=== PATIENT | male | born 1945 | race Caucasian/White ===

== ENCOUNTER 2017-05-19 13:52 | Day surgery (SDC) | payer MEDICARE, SELFPAY ==
[2017-05-19] VITALS (11 sets, daily range): BP systolic 132–163; BP diastolic 72–87; PULSE 48–68; RESP 17–22; TEMP 36.6; O2SAT 96–99; BMI 28.0
--- NOTE | 2017-05-19 13:59 | IR_ITS ---
CARDIAC CATHETERIZATION DATE OF CATHETERIZATION:05/19/2017 3:25 PM PROCEDURES: 1. Left heart catheterization 2. Left ventriculogram 3. Selective coronary angiogram 4. Drug-eluting stent deployment to the proximal and mid LAD 5. Drug-eluting stent deployment to the proximal and mid circumflex artery 6. Drug-eluting stent deployment to the dominant right coronary arteries posterior descending artery INDICATION FOR TEST: 1. Unstable angina/class IV angina 2. Abnormal EKG 3. Recent anterior myocardial infarction 4. Coronary artery disease Informed consent was obtained prior to the procedure. COMPLICATIONS: None ESTIMATED BLOOD LOSS: Less than 10 ml. TECHNIQUE: One percent lidocaine used to anesthetize the right anterior aspect of the wrist. The right radial artery was accessed via the Seldinger technique. A 6 Kiswahili sheath was placed in the right radial artery. 2.5 mg of verapamil, 800 mcg of nitroglycerin and 5000 U Heparin were given through the arterial sheath. The trap catheter was also used to perform left heart catheterization left ventriculogram and selective coronary angiogram. At the end of the diagnostic angiogram and additional 4000 units of heparin was administered intravenously. An Ikari left guide catheter was used intubate the left main artery and a choice PT extra-support wire was placed in the distal LAD. A 3 mm x 38 mm resolute Soy stent was deployed at 20 pattie reducing the critical subtotal occlusion to 0%. The wire was pulled back and placed into the obtuse marginal artery a guideline her was required and a 2.5 x 27 mm balloon was deployed at 20 pattie to predilate the stenosis. Following this a 3 mm x 34 mm resolute Agency stent was deployed at 18 pattie reducing the severe and critical stenosis to 0%. The apparatus was removed and an Ikari right guide catheter was used intubate the right coronary artery. The choice PT wire was placed distally and a 2 mm x 8 mm balloon was used to predilate the stenosis. Following this a 2.5 x 12 mm resolute Agency stent was deployed at 18 pattie reducing the critical stenosis to 0%. NICOLASA-3 flow was present down the circumflex artery and right coronary artery before and after the procedure the ACT was out of range. NICOLASA II flow was present down the LAD at the beginning of the procedure with NICOLASA-3 flow at the end of the procedure Patient received Brilinta 180 mg while on the table. At the end of the procedure the sheath was removed good hemostasis was achieved using TR banding patient was transferred to the postop holding area in stable condition ANGIOGRAPHIC RESULTS: 1. The left main artery normal 2. The left anterior descending artery proximally has 40% stenoses with mid vessel 40 and a focal 99% stenosis with subtotal occlusion and NICOLASA II flow down the LAD. 3. The circumflex artery is nondominant yet still a large vessel supplying a large obtuse marginal artery. Proximally the vessel has 50% stenoses with a focal 90% stenosis of the proximal portion of the large bifurcating obtuse marginal artery 4. The right coronary artery is a large dominant vessel and has proximal 30% stenoses mid vessel 40-50% stenoses with a long 30 and 40% stenoses through the distal portion of the right coronary artery. The posterior descending artery is a large branch and has a mid vessel 99% stenosis. The posterior lateral ventricular branch is also a large multi branching vessel 5. The MORELAND ventriculogram reveals normal 60% 6. The left ventricular end-diastolic pressure 10 mmHg IMPRESSION: 1. Critical coronary artery disease as described above 2. Successful stenting of the proximal to mid LAD critical disease reduced to 0% with 1 drug-eluting stent 3. Successful stenting of the proximal to mid circumflex artery critical
[2017-05-19 15:27] LABS: Basophils # 0.1 K/mm3 (0-0.2); Basophils % 1.1 % (0.1-2.0); Eosinophils # 0.2 K/mm3 (0.0-0.4); Hematocrit 42.2 % (42.0-52.0); Hemoglobin 14.5 g/dL (14.1-18.0); Lymphocytes % 46.5 K/mm3 (10-50); Mean Corpuscular HGB Conc 34.4 g/dL (31.8-35.4); Mean Corpuscular Hemoglobin 31.6 pg (27.0-31.2); Mean Corpuscular Volume 91.7 fl (80-94); Mean Platelet Volume 11.2 fl (7.4-10.4); Monocytes # 0.7 K/mm3 (0.1-1.0); Neutrophils # 3.6 K/mm3 (1.8-7.8); Neutrophils % 42.4 % (37.0-80.0); Platelet Count 260 K/mm3 (142-424); Red Cell Distribution Width 12.3 % (11.5-17.5); White Blood Count 8.5 K/mm3 (4.8-10.8)
[2017-05-19 16:00] LABS: Anion Gap 11.2 mEq/L (5-15); Blood Urea Nitrogen 25 mg/dL (7-18); Carbon Dioxide 27 mmol/L (21.0-32.0); Chloride 103 mmol/L (98-107); Creatinine Clearance Estimated 57 mL/min (0-300); Estimated Glomerular Filt Rate 50 ml/min (>60); GFR (African American) 60 ML/MIN (>60); Glucose 100 mg/dL (74-106); Sodium 137 mmol/L (136-145)
[2017-05-19 16:02] LABS: Potassium 4.2 mmoL/L (3.5-5.1)
--- NOTE | 2017-05-19 18:36 | PC.NURSE ---
When removing second set of 2mls of air from traclet his site began to bleed. Pressure was applied above the site and air was put back into the traclet. Will continue to monitor.
--- NOTE | 2017-05-19 19:17 | PC.NURSE ---
Report given to Leida Cruz Rn.
--- NOTE | 2017-05-19 20:46 | PC.NURSE ---
Obtained pt from Lana Persaud. Report given when tracelet was taken down the first two, pt bled some so put more air in. I have taken air out 2 at a time since receiving pt and no bleeding noted. Removed pt's IV and tracelet, dressed appropriately. Pt up and dressed, sling obtained and placed on pt. Much instruction given on bleeding precautions and limited use of arm. Pt voiced agreement with both. Pt left with steady gait and famiy at his side. They were escorted to front of building by SAMANTA Person.
--- NOTE | 2017-05-19 21:07 | PC.NURSE ---
Also advised pt to call Dr Walton Monday morning. Pt agreed, he would call and he has Dr. Walton's number.
[2017-05-22 08:21] LABS: CATHL Activated Clotting Time > 400 SEC (74-125)
[2017-05-22 08:25] LABS: CATHL Activated Clotting Time > 400 SEC (74-125)
--- NOTE | 2017-05-25 10:40 | PC.NURSE ---
post procedure call made, pt states he is doing well, had f/u appt with md, denies any questions/concerns at this time
== END 2017-05-19 18:00 | disposition home or self-care (01) ==
PROVIDERS: PCP Family Medicine; Visit Provider Internal Medicine
DX: I25.110 Atherosclerotic heart disease of native coronary artery with unstable angina pectoris (principal); R94.31 Abnormal electrocardiogram [ECG] [EKG]; I25.2 Old myocardial infarction; Z87.891 Personal history of nicotine dependence
CPT/HCPCS: 80048; 85025; 85347; 92928; 93458; 99152; 99153; C1725; C1769; C1876; C9600; J1644; Q9967

== ENCOUNTER 2017-06-01 09:30 | Outpatient (RCR) | payer MEDICARE, SELFPAY | END 2017-06-01 09:31 | disposition home or self-care (01) | LOC: PT 09:30 | PROVIDERS: PCP Family Medicine; Visit Provider Internal Medicine | DX: Z95.5 Presence of coronary angioplasty implant and graft (principal) | CPT/HCPCS: 93798 ==

== ENCOUNTER → 2019-01-16 09:04 | Outpatient (CLI) | payer MEDICARE, SELFPAY ==
--- NOTE | 2019-01-16 09:07 | CA_ITS ---
APPROVED REPORT Agricultural Education Instructor: HILARIO Laterality: Bilateral Study Quality: Good Indications: dizziness Risk Factors Hypertension: Hyperlipidemia Doppler Spectral Velocity Analysis ECA (R) 123.00/13.40 cm/s ECA (L) 86.70/7.93 cm/s dICA (R) 82.20/24.10 cm/s dICA (L) 87.20/27.00 cm/s Yris (R) 71.50/17.30 cm/s Yris (L) 83.00/23.80 cm/s pICA (R) 80.40/19.60 cm/s pICA (L) 79.10/28.10 cm/s dCCA (R) 104.00/23.40 cm/s dCCA (L) 101.00/22.00 cm/s pCCA (R) 114.00/20.40 cm/s pCCA (L) 108.00/22.80 cm/s Vert (R) 41.50/11.50 cm/s Vert (L) 40.80/12.80 cm/s ICA/CCA 0.79 ICA/CCA 0.86 Findings Duplex evaluation demonstrates stenosis of the right proximal internal carotid artery <20% with PSV <140 cm/sec, EDV <100 cm/sec, and IC/CC Ratio <4.0. Duplex evaluation demonstrates stenosis of the left proximal internal carotid artery <20% with PSV <140 cm/sec, EDV <100 cm/sec, and IC/CC Ratio <4.0. Antegrade flow seen bilateral vertebral arteries. Conclusion Duplex evaluation demonstrates stenosis of the right proximal internal carotid artery <20% with PSV <140 cm/sec, EDV <100 cm/sec, and IC/CC Ratio <4.0. Duplex evaluation demonstrates stenosis of the left proximal internal carotid artery <20% with PSV <140 cm/sec, EDV <100 cm/sec, and IC/CC Ratio <4.0. Antegrade flow seen bilateral vertebral arteries. Electronically signed by : Rashid Garrido MD 01/16/2019 20:05:56
== END ==
PROVIDERS: PCP Family Medicine; Visit Provider Internal Medicine Cardiovascular Disease
DX: R42 Dizziness and giddiness (principal)
CPT/HCPCS: 93880

== ENCOUNTER → 2019-01-25 07:42 | Outpatient (CLI) | payer MEDICARE, SELFPAY | PROVIDERS: PCP Family Medicine; Visit Provider Internal Medicine | DX: R42 Dizziness and giddiness (principal); I25.10 Atherosclerotic heart disease of native coronary artery without angina pectoris; E78.5 Hyperlipidemia, unspecified; I11.9 Hypertensive heart disease without heart failure | CPT/HCPCS: 93225 ==

== ENCOUNTER → 2019-02-01 08:28 | Outpatient (CLI) | payer MEDICARE, SELFPAY ==
[2019-02-01 10:29] LABS: Alanine Aminotransferase 14 U/L (12-78); Albumin Level 3.8 gm/dL (3.4-5.0); Alkaline Phosphatase 69 U/L (46-116); Anion Gap 10.6 mEq/L (5-15); Aspartate Amino Transferase 11 U/L (15-37); Bilirubin,Direct 0.1 mg/dL (0.0-0.2); Bilirubin,Indirect 0.3 mg/dL (0.0-0.9); Bilirubin,Total 0.4 mg/dL (0.2-1.0); Blood Urea Nitrogen 14 mg/dL (7-18); Calcium 9.1 mg/dL (8.5-10.1); Carbon Dioxide 30 mmol/L (21.0-32.0); Chloride 104 mmol/L (98-107); Chol/HDL Ratio 3.4 (1-3.5); Cholesterol 182 mg/dL (140-200); Creatinine,Serum 1.61 mg/dL (0.70-1.30); Estimated Glomerular Filt Rate 42 ml/min (>60); GFR (African American) 51 ML/MIN (>60); Glucose 107 mg/dL (74-106); HDL Cholesterol 53 mg/dL (27-67); LDL Cholesterol 94 mg/dL (0-130); Potassium 4.6 mmoL/L (3.5-5.1); Sodium 140 mmol/L (136-145); Total Protein,Serum 7.3 gm/dL (6.4-8.2); Triglycerides 175 mg/dL (30-200); VLDL Cholesterol 35 mg/dL (0-40)
== END ==
PROVIDERS: Visit Provider Internal Medicine Cardiovascular Disease
DX: E78.5 Hyperlipidemia, unspecified (principal); R42 Dizziness and giddiness
CPT/HCPCS: 36415; 80048; 80061; 80076

== ENCOUNTER → 2019-10-09 09:04 | Outpatient (CLI) | payer MEDICARE, SELFPAY ==
[2019-10-09 10:26] LABS: Alanine Aminotransferase 16 U/L (12-78); Albumin Level 4.8 g/dl (3.5-5.0); Alkaline Phosphatase 82 U/L (38-126); Anion Gap 10.5 mEq/L (5-15); Aspartate Amino Transferase 25 U/L (17-59); Bilirubin,Direct 0.1 mg/dl (0.0-0.4); Bilirubin,Indirect 0.6 mg/dL (0.0-0.9); Bilirubin,Total 0.7 mg/dl (0.2-1.3); Bilirubin,Unconjugated 0.6 mg/dL (0.0-1.1); Blood Urea Nitrogen 27 mg/dl (9-20); Calcium 9.8 mg/dl (8.4-10.2); Carbon Dioxide 28 mmol/L (22.0-30.0); Chloride 104 mmol/L (98-107); Chol/HDL Ratio 5.8 (1-3.5); Cholesterol 307 mg/dl (140-200); Estimated Glomerular Filt Rate 39 ml/min (>60); GFR (African American) 48 ML/MIN (>60); Glucose 97 mg/dl (74-100); HDL Cholesterol 53 mg/dl (40-60); Potassium 4.5 mmoL/L (3.5-5.1); Sodium 138 mmol/L (136-145); Triglycerides 282 mg/dl (30-150); VLDL Cholesterol 56 mg/dL (0-40)
[2019-10-09 10:37] LABS: Direct LDL Cholesterol 215.18 mg/dL (100-129)
== END ==
PROVIDERS: Visit Provider Internal Medicine Cardiovascular Disease
DX: E78.5 Hyperlipidemia, unspecified (principal); I11.9 Hypertensive heart disease without heart failure; I25.10 Atherosclerotic heart disease of native coronary artery without angina pectoris; I65.23 Occlusion and stenosis of bilateral carotid arteries
CPT/HCPCS: 36415; 80048; 80061; 80076

== ENCOUNTER → 2019-12-11 08:50 | Outpatient (CLI) | payer MEDICARE, SELFPAY ==
--- NOTE | 2019-12-11 | CT_ITS ---
PROCEDURE: CT HEAD/BRAIN WO CON CLINICAL INDICATION: TIA, prior stroke, left-sided facial numbness and drawing of the right hand COMPARISON: No exams were available for comparison TECHNIQUE: Axial images obtained. All CT scans at the facility use one or more dose reduction, viz: automated exposure control, ma/kV adjustment per patient size (including targeted exams where dose is matched to indication, i.e. head), or iterative reconstruction technique. FINDINGS: No midline shift, mass effect, intracranial hemorrhage, hydrocephalus, or extra-axial fluid collection is evident. There is generalized atrophy with hypoattenuation of the periventricular white matter consistent with microangiopathic changes. There is asymmetry in the occipital horns of the lateral ventricles with the left side being more prominent than the right. This is of questionable clinical significance the calvarium has an unremarkable appearance. No mastoid effusion. Bony hypertrophic changes present along the right aspect of the atlantoaxial joint posterior to the dens IMPRESSION: No acute intracranial finding Dictated b Rashid Garrido MD 12/11/2019 15:38 Rashid Garrido MD in [facility] 12/11/2019 15:38
--- NOTE | 2019-12-11 | CT_ITS ---
Procedure: CT ANGIO HEAD CLINICAL HISTORY: Left-sided facial numbness, right hand weakness COMPARISON: CT CT HEAD/BRAIN WO CON from 12/11/2019 TECHNIQUE: IV Contrast: 100ml Optiray 350 Axial images obtained with sagittal and coronal reformats. All CT scans at the facility use one or more dose reduction, viz: automated exposure control, ma/kV adjustment per patient size (including targeted exams where dose is matched to indication, i.e. head), or iterative reconstruction technique. FINDINGS: There are mild atheromatous changes with calcific plaque involving the cavernous portion of the internal carotid arteries. There is approximately 50 percent stenosis involving the supraclinoid portion of the right ICA from the calcific plaque. No aneurysm or arteriovenous malformations are apparent. The vertebral basilar system has an unremarkable appearance. No evidence of 6 sinus thrombosis. No enhancing lesions apparent. Incidental note is made mild ethmoid sinus opacification IMPRESSION: 1. Mild atheromatous changes of the cavernous portion of the ICAs with approximately 50 percent stenosis of the supraclinoid portion of the right ICA. 2. No aneurysm, AVM, or major intracranial occlusive changes. Dictated b Rashid Garrido MD 12/12/2019 09:46 Rashid Garrido MD in [facility] 12/12/2019 09:46
[2019-12-11 09:39] LABS: Blood Urea Nitrogen 27 mg/dl (9-20); Estimated Glomerular Filt Rate 37 ml/min (>60); GFR (African American) 45 ML/MIN (>60)
--- NOTE | 2019-12-11 10:40 | CT_ITS ---
Procedure: CT ANGIO NECK CLINICAL HISTORY: LATE EFFECTS OF CEREBROVASCULAR DISEASE Prior stroke, left-sided facial numbness a drawing of the right hand, COMPARISON: No exams were available for comparison TECHNIQUE: IV Contrast: 100ml Optiray 350 Axial images obtained with sagittal and coronal reformats. All CT scans at the facility use one or more dose reduction, viz: automated exposure control, ma/kV adjustment per patient size (including targeted exams where dose is matched to indication, i.e. head), or iterative reconstruction technique. FINDINGS: There are mild atheromatous changes of the aorta and great vessels with no significant stenosis the proximal aspect of the great vessels. The proximal aspect of the left vertebral is kinked with a area of stenosis of approximately 75 percent. Right carotid: There is only a small amount of calcific plaque in the common carotid. The internal carotid on the right has an unremarkable appearance with no significant stenotic lesions. Left carotid: No significant stenosis of the common or internal carotid on the left. No dissection or ulcerations apparent. The there are few scattered small nodes in the neck. The there is mild mucosal thickening of the left maxillary sinus and there are mild degenerative changes in the cervical spine. IMPRESSION: No carotid stenosis There is tortuosity with kinking of the proximal aspect of the left vertebral artery with approximately 75 percent stenosis the the Dictated b Rashid Garrido MD 12/12/2019 09:26 Rashid Garrido MD in [facility] 12/12/2019 09:26
== END ==
PROVIDERS: PCP Family Medicine; Visit Provider Family Medicine
DX: I69.90 Unspecified sequelae of unspecified cerebrovascular disease (principal); R42 Dizziness and giddiness
CPT/HCPCS: 36415; 70450; 70496; 70498; 82565; 84520; Q9967

== ENCOUNTER → 2020-03-20 10:01 | Outpatient (CLI) | payer MEDICARE, SELFPAY ==
[2020-03-20 10:49] LABS: Alanine Aminotransferase 15 U/L (12-78); Albumin Level 4.3 g/dl (3.5-5.0); Alkaline Phosphatase 69 U/L (38-126); Aspartate Amino Transferase 25 U/L (17-59); Bilirubin,Direct 0.1 mg/dl (0.0-0.4); Bilirubin,Indirect 0.5 mg/dL (0.0-0.9); Bilirubin,Total 0.6 mg/dl (0.2-1.3); Bilirubin,Unconjugated 0.5 mg/dL (0.0-1.1); Chol/HDL Ratio 3.3 (1-3.5); Cholesterol 189 mg/dl (140-200); HDL Cholesterol 57 mg/dl (40-60); Total Protein,Serum 7.3 g/dl (6.3-8.2); Triglycerides 183 mg/dl (30-150); VLDL Cholesterol 37 mg/dL (0-40)
[2020-03-20 11:00] LABS: Direct LDL Cholesterol 101.02 mg/dL (100-129)
== END ==
PROVIDERS: Visit Provider Internal Medicine Cardiovascular Disease
DX: I10 Essential (primary) hypertension; I25.10 Atherosclerotic heart disease of native coronary artery without angina pectoris; R06.02 Shortness of breath; Z95.5 Presence of coronary angioplasty implant and graft; E78.49 Other hyperlipidemia
CPT/HCPCS: 36415; 80061; 80076

== ENCOUNTER 2020-07-22 16:07 | Observation (INO) | payer MEDICARE, SELFPAY ==
[2020-07-22] VITALS (27 sets, daily range): BP systolic 119–183; BP diastolic 77–91; PULSE 66–115; RESP 16–18; TEMP 36.7–37; O2SAT 91–98; BMI 26.6; BMI 25.5
--- NOTE | 2020-07-22 16:43 | HMH.EDGENADL ---
ED Disposition Clinical Impression: SBO (small bowel obstruction) Disposition: Admitted As Inpatient Condition on Discharge: Good Referrals: Cruzito Preciado [Primary Care Provider] - Time of Disposition: 18:04 - Critical Care Critical Care Time: No Attestation: On 07/22/20, the high probability of a clinically significant, sudden or life threatening deterioration of the following system(s) required my full and direct attention, intervention and personal management. The time I documented below is in addition to time spent performing reported procedures but includes the following listed in this critical care notation. Medical Decision Making - Medical Records Medical records reviewed: Yes: I reviewed the patient's medical records. - Reynaldo Inquiry Pt receiving controlled substance: No Vital Signs: 07/22/20 16:09 07/22/20 16:45 07/22/20 17:00 Temperature 98.6 F Temperature Source Oral Pulse Rate 77 78 Pulse Rate [Right Radial] 70 Respiratory Rate 18 Blood Pressure 149/79 H Blood Pressure [Right Arm] 159/82 H Blood Pressure Mean 100 Blood Pressure Mean [Right Arm] 107 Blood Pressure Source [Right Arm] Automatic Cuff Blood Pressure Position [Right Arm] Sitting 02 Sat by Pulse Oximetry 97 94 L 94 L Oxygen Delivery Method Room Air 07/22/20 17:20 07/22/20 17:30 Temperature Temperature Source Pulse Rate 82 66 Pulse Rate [Right Radial] Respiratory Rate Blood Pressure 147/79 H Blood Pressure [Right Arm] Blood Pressure Mean 96 Blood Pressure Mean [Right Arm] Blood Pressure Source [Right Arm] Blood Pressure Position [Right Arm] 02 Sat by Pulse Oximetry 91 L 94 L Oxygen Delivery Method - Lab Data Lab results reviewed: Yes: I reviewed the patient's lab results. Lab Results 07/22/20 16:35: WBC 12.9 H, RBC 4.52 L, Hgb 13.9 L, Hct 41.9 L, MCV 92.7, MCH 30.8, MCHC 33.2, RDW 12.3, Plt Count 309, MPV 10.3, Neut % (Auto) 79.1, Lymph % (Auto) 13.5, [place] % (Auto) 6.7, Eos % (Auto) 0.2, Baso % (Auto) 0.4, Neut # (Auto) 10.2 H, Lymph # (Auto) 1.7, [place] # (Auto) 0.9, Eos # (Auto) 0.0, Baso # (Auto) 0.1 07/22/20 16:35: Sodium 137, Potassium 4.0, Chloride 100, Carbon Dioxide 24, Anion Gap 17.0 H, BUN 34 H, Creatinine 1.90 H, Estimated Creat Clear 38, Estimated GFR 35 L, Est GFR ( Amer) 42 L, Glucose 160 H, Calcium 10.2, Total Bilirubin 0.9, AST 33, ALT 21, Alkaline Phosphatase 80, Total Protein 8.9 H, Albumin 5.0, Globulin 3.9 H, Albumin/Globulin Ratio 1.3 Result diagrams: 07/22/20 16:35 07/22/20 16:35 Orders (Tests/Meds): ORDERS Category Date Time Status CT abdomen pelvis wo con Stat Cat Scan 07/22/20 16:44 Taken - CT Data CT Scan: Abdomen, Pelvis Time Received: 17:[address] Reviewed: Yes: I discussed the CT results w/the radiologist Preliminary Findings: Abnormal Findings Narrative: Small bowel obstruction, moderate. Located in the jejunum. Left lower quadrant transition point. - ECG Data Tracing #1 Sinus rhythm with first-degree AV block, left bundle branch block, 73 bpm, no ST elevation or depression. ECG initial impression date: 07/22/20 ECG initial impression time: 17:33 Medical Decision Narrative: 74yo M presents to the emergency department with abdominal pain, nausea and vomiting. Patient has a history of small bowel obstruction suspect the same today. Patient is in no acute distress on initial evaluation. Patient's laboratory studies were unremarkable. CT of the abdomen and pelvis reveals moderate small bowel obstruction of the jejunum with transition point in the left lower quadrant. Case discussed with Dr. Kowalski who agrees to accept the patient. Request NG tube be placed and case discussed with general surgery. General Adult HPI - General Chief complaint: Abdominal Pain Stated complaint: Possible Bowel Blockage Time Seen by Provider: 07/22/20 16:44 Mode of Arrival: Ambulatory Limitations: No Limitations Description of Symp
--- NOTE | 2020-07-22 16:44 | CT_ITS ---
PROCEDURE: CT ABDOMEN PELVIS WO CON CLINICAL INDICATION: abd pain, vomitting COMPARISON: No exams were available for comparison TECHNIQUE: Axial images obtained with sagittal and coronal reformats. All CT scans at the facility use one or more dose reduction, viz: automated exposure control, ma/kV adjustment per patient size (including targeted exams where dose is matched to indication, i.e. head), or iterative reconstruction technique. FINDINGS: LOWER THORAX: No acute finding ABDOMEN & PELVIS: The liver has an unremarkable appearance. Gallstones are present. 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 The adrenal glands are unremarkable. There is mild pancreatic atrophy. No pancreatic mass. Small bilateral renal cysts are present. There is a 3 mm stone in the midportion region of the left kidney. No ureteral calculi. No hydronephrosis. No evidence of appendicitis. There is mild distention of the stomach. Small bowel is distended proximally. Transition point is felt to be in the left lower quadrant area in the region of the distal jejunum/proximal ileum. The mid distal ileum are decompressed. Air-fluid levels are present in the small bowel. Small bowel feces sign noted in the left lower quadrant. Small bowel measures up to 4 cm in diameter. No abscess or free air apparent. Grade 1 spondylitic spondylolisthesis is present at L5-S1.. IMPRESSION: 1. Moderate grade small bowel obstruction with transition point in the left lower quadrant. No free air apparent. The mid and distal small bowel are decompressed. 2. Cholelithiasis. 3. Left nephrolithiasis Dictated by: Rashid Garrido MD 07/23/2020 06:30 Rashid Garrido MD in [facility] 07/23/2020 06:30
[2020-07-22 16:53] LABS: Basophils # 0.1 K/mm3 (0-0.2); Basophils % 0.4 % (0.1-2.0); Eosinophils % 0.2 % (0.1-12.0); Hematocrit 41.9 % (42.0-52.0); Hemoglobin 13.9 g/dL (14.1-18.0); Lymphocytes # 1.7 K/mm3 (0.7-4.5); Lymphocytes % 13.5 % (10-50); Mean Corpuscular HGB Conc 33.2 g/dL (31.8-35.4); Mean Corpuscular Hemoglobin 30.8 pg (27.0-31.2); Mean Corpuscular Volume 92.7 fl (80-94); Mean Platelet Volume 10.3 fl (7.4-10.4); Monocytes # 0.9 K/mm3 (0.1-1.0); Monocytes % 6.7 % (1.7-9.3); Neutrophils # 10.2 K/mm3 (1.8-7.8); Neutrophils % 79.1 % (37.0-80.0); Platelet Count 309 K/mm3 (142-424); Red Blood Count 4.52 M/mm3 (4.60-6.20); Red Cell Distribution Width 12.3 % (11.5-17.5); White Blood Count 12.9 K/mm3 (4.8-10.8)
[2020-07-22 16:59] LABS: Alanine Aminotransferase 21 U/L (12-78); Albumin/Globulin Ratio 1.3 (1.1-1.8); Alkaline Phosphatase 80 U/L (38-126); Aspartate Amino Transferase 33 U/L (17-59); Bilirubin,Total 0.9 mg/dl (0.2-1.3); Blood Urea Nitrogen 34 mg/dl (9-20); Calcium 10.2 mg/dl (8.4-10.2); Carbon Dioxide 24 mmol/L (22.0-30.0); Chloride 100 mmol/L (98-107); Creatinine Clearance Estimated 38 mL/min (50-200); Estimated Glomerular Filt Rate 35 ml/min (>60); GFR (African American) 42 ML/MIN (>60); Globulin 3.9 g/dL (1.3-3.2); Glucose 160 mg/dl (74-100); Sodium 137 mmol/L (136-145); Total Protein,Serum 8.9 g/dl (6.3-8.2)
--- NOTE | 2020-07-22 17:29 | ECG_ITS ---
APPROVED REPORT Exam: Resting ECG HR:73 bpm ECG Measurements Heart Rate 73 AXES MI 246 P 20 QRSd 150 QRS -38 QT 426 T 101 QTc 469 Conclusion Sinus rhythm with 1st degree AV block Left axis deviation Left bundle branch block Abnormal ECG Electronically signed by : Dequan Kowalski, 07/24/2020 11:43:13
--- NOTE | 2020-07-22 17:56 | PC.NURSE ---
Paged Dr Kowalski for admission
--- NOTE | 2020-07-22 17:59 | PC.NURSE ---
RADHA VANCE speaking with Dr. Kowalski
--- NOTE | 2020-07-22 18:01 | PC.NURSE ---
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
--- NOTE | 2020-07-22 18:02 | PC.NURSE ---
notified general warehouse worker of admission
--- NOTE | 2020-07-22 18:34 | PC.NURSE ---
ER MD notified of multiple attempts of attempting to place NG without success r/t pt is vomiting NG tube back up. ER MD gave verbal order for GI cocktail to try and numb pt to help attempt to place NG tube.
--- NOTE | 2020-07-22 18:43 | XR_ITS ---
PROCEDURE: XR CHEST PORTABLE CLINICAL HISTORY: ng tube placement COMPARISON: No exams were available for comparison FINDINGS: The cardiomediastinal silhouette and pulmonary vascularity are within normal limits. The lungs are clear without infiltrates, suspicious nodules, or pleural effusions. There is a nasogastric tube present. The tip is not visible but is below the GE junction. IMPRESSION: NG tube tip below the GE junction. Otherwise negative. Dictated by: Rashid Garrido MD 07/22/2020 19:27 Rashid Garrido MD in [facility] 07/22/2020 19:27
--- NOTE | 2020-07-22 18:47 | PC.NURSE ---
NG tube placed to L nare at this time, waiting on chest xray to confirm placement. NG is at 55 cm, pt was measured to be 60 cm but was unable to put tube at that depth r/t pt gagging. ER is aware. will continue to monitor and await xray results.
--- NOTE | 2020-07-22 18:51 | PC.NURSE ---
rad at BS
--- NOTE | 2020-07-22 19:19 | XR_ITS ---
PROCEDURE: XR CHEST PORTABLE CLINICAL HISTORY: NG TUBE RE POSITIONED. COMPARISON: CR XR CHEST PORTABLE from 07/22/2020 FINDINGS: The nasogastric tube has been repositioned. The tip is in the region the body of the stomach. Surgical clips are present in the left upper quadrant. The lung hughes are over penetrated as the exam is performed for NG tube position. No obvious lobar consolidation or collapse. No acute bony abnormalities. IMPRESSION: NG tube tip in the region of the body of the stomach. Dictated by: Rashid Garrido MD 07/23/2020 06:22 Rashid Garrido MD in [facility] 07/23/2020 06:22
--- NOTE | 2020-07-22 20:06 | PC.NURSE ---
Ng advanced to 65cm in left nare after MD reviewed Xray. Positive auscultation with 30cc of air. Pt placed on intermittent low wall suction. Brown fluid emptying into suction container. Pt tolerating well.
--- NOTE | 2020-07-22 21:34 | PC.NURSE ---
800ml of brown fluid in suction container at this time.
--- NOTE | 2020-07-22 22:05 | PC.NURSE ---
PT ARRIVED TO FLOOR VIA STRETCHER FROM ED AT 2200
[2020-07-23 04:00] VITALS: BP 133/65; PULSE 82; RESP 16; TEMP 36.9; O2SAT 94
[2020-07-23 05:15] VITALS: BMI 25.4
[2020-07-23 06:47] LABS: Basophils % 0.1 % (0.1-2.0); Eosinophils % 0.1 % (0.1-12.0); Hemoglobin 13.4 g/dL (14.1-18.0); Lymphocytes % 9.8 % (10-50); Mean Corpuscular HGB Conc 33.4 g/dL (31.8-35.4); Mean Corpuscular Hemoglobin 31.2 pg (27.0-31.2); Mean Corpuscular Volume 93.5 fl (80-94); Mean Platelet Volume 10.2 fl (7.4-10.4); Monocytes # 0.9 K/mm3 (0.1-1.0); Monocytes % 4.5 % (1.7-9.3); Neutrophils # 17.2 K/mm3 (1.8-7.8); Neutrophils % 85.5 % (37.0-80.0); Platelet Count 278 K/mm3 (142-424); Red Blood Count 4.28 M/mm3 (4.60-6.20); Red Cell Distribution Width 12.6 % (11.5-17.5); White Blood Count 20.1 K/mm3 (4.8-10.8)
--- NOTE | 2020-07-23 06:53 | PC.NURSE ---
Pt is A&Ox4 and has not c/o pain this shift. NG set to intermittent LWS and has put out 1,450ml of output. NG 65cm at the nare. Pt has denied any n/v/d. Pt has also not voided this shift. Bowel sounds hypoactive. Pt states he does not feel the urge, bladder not distended or painful to palpation. Lungs CTA, on room air. Call light within reach.
[2020-07-23 06:55] LABS: Anion Gap 11.8 mEq/L (5-15); Blood Urea Nitrogen 38 mg/dl (9-20); Calcium 9.6 mg/dl (8.4-10.2); Carbon Dioxide 34 mmol/L (22.0-30.0); Chloride 95 mmol/L (98-107); Creatinine Clearance Estimated 38 mL/min (50-200); Estimated Glomerular Filt Rate 37 ml/min (>60); GFR (African American) 45 ML/MIN (>60); Glucose 133 mg/dl (74-100); Potassium 3.8 mmoL/L (3.5-5.1); Sodium 137 mmol/L (136-145)
[2020-07-23 07:05] LABS: MANUAL DIFFERENTIAL MANUAL DIFFERENTIAL (MANUAL DIFF)
--- NOTE | 2020-07-23 07:20 | HMH.GSCON ---
*Admission Date: 07/22/20 *Reason for consult:: SBO *History of present illness: This is a 74-year-old gentleman seen in consultation from the service of Dr. Kowalski for evaluation regarding small bowel obstruction. He presented to the emergency department yesterday evening with increasing abdominal discomfort/distention. Evaluation included a CT scan that showed changes consistent with possible developing small bowel obstruction. Please see HPI from admission H&P forwarded below. Forwarded from admission H&P: 74-year-old white male with history of recurrent bowel obstructions-he relates this to an injury in the in which he was pushing down a tree and the tree came back and hit me in the belly. He reports that since that time he has had bowel obstructions every 10 years and that he comes to the emergency department and gets admitted with an NG tube and then he is fine. He thinks that he is precipitated this particular bowel obstruction by eating lots of beans and the husks of the beans hung up on something in there. He reports that since admission last night he feels much better and that it actually had some flatulence. He denies melena, hematochezia or coffee-ground emesis. Review of Systems - Constitutional Denies chills - Eyes Denies change in vision - ENT Denies pain with swallowing - *Cardiovascular Denies chest pain - *Respiratory Denies cough - *Gastrointestinal Reports abdominal pain, Reports nausea - *Genitourinary Denies difficulty urinating - *Musculoskeletal Denies abnormal walking - Integumentary/Breasts Denies new lesions - *Neurologic Denies confusion - Psychiatric Denies anxiety - Endocrine Denies cold intolerance - Hematologic/Lymphatic Denies easy bleeding - Allergic/Immunologic Denies wheezing [facility] History Medical History: Reports:: Aneurysm, Cardiomyopathy, Carotid Stenosis, Coronary Artery Disease, Hyperlipidemia, Hypertension Denies:: Cancer, Diabetes Mellitus Type 1, Diabetes Mellitus Type 2, MRSA *Have you ever received a pneumonia vaccine?: No *Have you received a flu vaccine this season?: Yes Other Surgeries: Yes: Cardiac Catheterization ([facility] 3 stents ), Other (bowel surgery) Amputation: No Fractures: No - *Social History Smoking Status: Former smoker Tobacco Type: cigarettes Alcohol Intake: never Alcohol Intake Frequency:: other Substance Use Type: denies use *Occupational Status:: retired Household Members: spouse *Travel in the last 8 weeks: None Family Hx:: Diabetes Meds Home Medications Medication Instructions Recorded Confirmed Type Aspirin [Low Dose Aspirin EC] 81 mg PO DAILY 05/19/17 07/23/20 History Clopidogrel Bisulfate [Plavix] 75 mg PO DAILY 07/22/20 07/22/20 History Evolocumab [Repatha SureClick] 140 mg SQ .EVERY 2 WEEKS 07/22/20 07/23/20 History Losartan Potassium [Cozaar 100mg 100 mg PO DAILY 07/22/20 07/22/20 History Tablets] Allergies Allergy/AdvReac Type Severity Reaction Status Date / Time clarithromycin [From Biaxin] Allergy Severe Hives Verified 07/22/20 22:37 atorvastatin AdvReac Intermediate myalgia Verified 07/22/20 22:37 rosuvastatin [From Crestor] AdvReac Intermediate myalgias Verified 07/22/20 22:37 Exam Vital signs and Labs for Last 24 Hours: Temp Pulse Resp BP Pulse Ox 98.5 F 82 16 133/65 94 L 07/23/20 04:00 07/23/20 04:00 07/23/20 04:00 07/23/20 04:00 07/23/20 04:00 Laboratory Results - last 24 hr 07/22/20 16:35: WBC 12.9 H, RBC 4.52 L, Hgb 13.9 L, Hct 41.9 L, MCV 92.7, MCH 30.8, MCHC 33.2, RDW 12.3, Plt Count 309, MPV 10.3, Neut % (Auto) 79.1, Lymph % (Auto) 13.5, [place] % (Auto) 6.7, Eos % (Auto) 0.2, Baso % (Auto) 0.4, Neut # (Auto) 10.2 H, Lymph # (Auto) 1.7, [place] # (Auto) 0.9, Eos # (Auto) 0.0, Baso # (Auto) 0.1 07/22/20 16:35: Sodium 137, Potassium 4.0, Chloride 100, Carbon Dioxide 24, Anion Gap 17.0 H, BUN 34 H, Creatinine 1.90 H, Estimated Creat Clear 38, Estimat
[2020-07-23 07:25] VITALS: BP 141/74; PULSE 78; RESP 18; TEMP 36.9; O2SAT 98
--- NOTE | 2020-07-23 07:26 | P.CONPHA_ITS ---
[facility] Pharmacy VTE Monitoring - Patient Demographics Admission date: 07/22/20 Report Date: 07/23/20 Time: 07:27 Allergies/Adverse Reactions: Patient Allergies clarithromycin [From Biaxin] Allergy (Severe, Verified 07/22/20 22:37) Hives atorvastatin Adverse Reaction (Intermediate, Verified 07/22/20 22:37) myalgia rosuvastatin [From Crestor] Adverse Reaction (Intermediate, Verified 07/22/20 22:37) myalgias Height: 1.75 m Weight: 77.791 kg Patient Problems: Current Active Problems SBO (small bowel obstruction) (Acute) - VTE Risk Labs: VTE Related Lab Results Hgb 13.4 g/dL (14.1-18.0) L 07/23/20 06:24 Hct 40.0 % (42.0-52.0) L 07/23/20 06:24 Plt Count 278 K/mm3 (142-424) 07/23/20 06:24 BUN 38 mg/dl (9-20) H 07/23/20 06:24 Creatinine 1.80 mg/dl (0.66-1.25) H 07/23/20 06:24 Estimated Creat Clear 38 mL/min (50-200) 07/23/20 06:24 Was VTE Risk Assessment Performed: Yes VTE Score: 5 VTE Risk Level: Low Risk Clinical Trial Participant: No - Prophylaxis VTE Prophylaxis Ordered?: Yes Types of VTE Prophylaxis: IPCS Knee High, Pharmacological Pharmacologic Type: Enoxaparin
--- NOTE | 2020-07-23 07:29 | HMH.PHAINT ---
verified home medication list with list from outpatient pharmacy
--- NOTE | 2020-07-23 07:34 | FL_ITS ---
PROCEDURE: FL SMALL BOWEL FOLLOW THROUGH CLINICAL INDICATION: sbo Small-bowel obstruction COMPARISON: No exams were available for comparison FINDINGS: Fluoroscopy time: 3 minutes and 29 seconds A mixture of barium and Gastrografin was given through the patient's NG tube. There is mild dilatation the duodenum and jejunum. The small bowel folds however were not effaced. Fluoroscopic evaluation was performed in a definite transition point could not be identified despite multiple positioning and compression. There was no significant peristalsis of the small bowel at this region. The delayed image obtained at approximately 4 hours showed only slight progression of the column of contrast. Findings may be due to a focal ileus. There was full some flocculation of contrast in the jejunum due to the slow. The patient experience nausea and vomiting for much of the exam. Serial KUBs will be obtained to follow the progress of the column of barium. IMPRESSION: Persistent dilatation of the proximal small bowel as described above without significant peristalsis or focal transition point. Cannot exclude the possibility of small-bowel obstruction however, focal ileus is also considered. Serial KUBs to be obtained for further evaluation. Please correlate with clinical findings. Dictated by: Rashid Garrido MD 07/23/2020 16:53 Rashid Garrido MD in [place] 07/23/2020 16:53
[2020-07-23 08:00] VITALS: O2SAT 98
[2020-07-23 08:31] LABS: Eosinophils % 2 % (0-3); Lymphocytes % 10 % (10-50); Monocytes % 5 % (2-9); Neutrophils % 83 % (42-76); Total Cells Counted 100
[2020-07-23 08:32] LABS: Platelet Estimate Normal; RBC Morphology Normal
--- NOTE | 2020-07-23 08:37 | HMH.HP ---
*Admission Date: 07/22/20 *Chief complaint: My bowels are blocked up. *History of present illness: 74-year-old white male with history of recurrent bowel obstructions-he relates this to an injury in the in which he was pushing down a tree and the tree came back and hit me in the belly. He reports that since that time he has had bowel obstructions every 10 years and that he comes to the emergency department and gets admitted with an NG tube and then he is fine. He thinks that he is precipitated this particular bowel obstruction by eating lots of beans and the husks of the beans hung up on something in there. He reports that since admission last night he feels much better and that it actually had some flatulence. He denies melena, hematochezia or coffee-ground emesis. [facility] History I have reviewed the patient's past medical history: Yes Medical History: Reports:: Aneurysm, Cardiomyopathy, Carotid Stenosis, Coronary Artery Disease, Hyperlipidemia, Hypertension Denies:: Cancer, Diabetes Mellitus Type 1, Diabetes Mellitus Type 2, MRSA *Have you ever received a pneumonia vaccine?: No *Have you received a flu vaccine this season?: Yes Other Surgeries: Yes: Cardiac Catheterization ([facility] 3 stents ), Other (bowel surgery) Amputation: No Fractures: No - *Social History Smoking Status: Former smoker Tobacco Type: cigarettes Alcohol Intake: never Alcohol Intake Frequency:: other Substance Use Type: denies use *Occupational Status:: retired Household Members: spouse *Travel in the last 8 weeks: None Family Hx:: Diabetes Review of Systems - Review of Systems Review of systems:: pertinent systems reviewed and negative unless documented below Meds Home Medications Medication Instructions Recorded Confirmed Type Aspirin [Low Dose Aspirin EC] 81 mg PO DAILY 05/19/17 07/23/20 History Clopidogrel Bisulfate [Plavix] 75 mg PO DAILY 07/22/20 07/22/20 History Evolocumab [Repatha SureClick] 140 mg SQ .EVERY 2 WEEKS 07/22/20 07/23/20 History Losartan Potassium [Cozaar 100mg 100 mg PO DAILY 07/22/20 07/22/20 History Tablets] Allergies Allergy/AdvReac Type Severity Reaction Status Date / Time clarithromycin [From Biaxin] Allergy Severe Hives Verified 07/22/20 22:37 atorvastatin AdvReac Intermediate myalgia Verified 07/22/20 22:37 rosuvastatin [From Crestor] AdvReac Intermediate myalgias Verified 07/22/20 22:37 Exam Vital signs and Labs for Last 24 Hours: Temp Pulse Resp BP Pulse Ox 98.4 F 78 18 141/74 H 98 07/23/20 07:25 07/23/20 07:25 07/23/20 07:25 07/23/20 07:25 07/23/20 07:25 Laboratory Results - last 24 hr 07/22/20 16:35: WBC 12.9 H, RBC 4.52 L, Hgb 13.9 L, Hct 41.9 L, MCV 92.7, MCH 30.8, MCHC 33.2, RDW 12.3, Plt Count 309, MPV 10.3, Neut % (Auto) 79.1, Lymph % (Auto) 13.5, [place] % (Auto) 6.7, Eos % (Auto) 0.2, Baso % (Auto) 0.4, Neut # (Auto) 10.2 H, Lymph # (Auto) 1.7, [place] # (Auto) 0.9, Eos # (Auto) 0.0, Baso # (Auto) 0.1 07/22/20 16:35: Sodium 137, Potassium 4.0, Chloride 100, Carbon Dioxide 24, Anion Gap 17.0 H, BUN 34 H, Creatinine 1.90 H, Estimated Creat Clear 38, Estimated GFR 35 L, Est GFR ( Amer) 42 L, Glucose 160 H, Calcium 10.2, Total Bilirubin 0.9, AST 33, ALT 21, Alkaline Phosphatase 80, Total Protein 8.9 H, Albumin 5.0, Globulin 3.9 H, Albumin/Globulin Ratio 1.3 07/23/20 06:24: WBC 20.1 H* D, RBC 4.28 L, Hgb 13.4 L, Hct 40.0 L, MCV 93.5, MCH 31.2, MCHC 33.4, RDW 12.6, Plt Count 278, MPV 10.2, Neut % (Auto) 85.5 H, Lymph % (Auto) 9.8 L, [place] % (Auto) 4.5, Eos % (Auto) 0.1, Baso % (Auto) 0.1, Neut # (Auto) 17.2 H, Lymph # (Auto) 2.0, [place] # (Auto) 0.9, Eos # (Auto) 0.0, Baso # (Auto) 0.0, Total Counted 100, Neutrophils % (Manual) 83 H, Lymphocytes % (Manual) 10, Monocytes % (Manual) 5, Eosinophils % (Manual) 2, Platelet Estimate Normal, RBC Morphology Normal 07/23/20 06:24: Sodium 137, Potassium 3.8, Chloride 95 L, Carbon Dioxide 34 H D, Anion Gap 11.8, BUN 38 H, Creatinine 1.80 H, Bekah
[2020-07-23 16:00] VITALS: BP 128/66; PULSE 80; RESP 19; TEMP 36.8; O2SAT 94
--- NOTE | 2020-07-23 16:14 | PC.NURSE ---
HE SI AOX4, ABLE TO MAKE NEEDS KNOWN TO STAFF, NG TUBE IN PLACE TO LOW WALL SUCTION 65 AT THE NARE, ONE EPISODE OF N/V WITH EMESIS, PRN ZOFRAN ADMIN PER MAR WITH GOOD EFFECTIVENESS, PT DID URINATE THIS SHIFT INDEPENDENTLY IN THE URINAL, HAS APPEARED VERY FATIGUED AND HAS NOT BEEN OUT OF BED EXCEPT WHEN TRANSPORTING TO RADIOLOGY, HE HAS DENIED ANY PAIN, BOWEL SOUNDS ARE HYPOACTIVE IN ALL FOUR QUADRANTS, HE HAS NOT REQUIRED O2 SUPPORT AND HIS LUNGS ARE CTA, HE HAS BEEN PROVIDED WITH MOUTH SWABS PERIODICALLY T/O SHIFT, NOTED TO BE IN ROOM ASLEEP AT TIME OF WRITING.
--- NOTE | 2020-07-23 16:50 | XR_ITS ---
PROCEDURE: XR KUB CLINICAL INDICATION: F/U TO SMALL BOWEL STUDY COMPARISON: CT CT ABDOMEN PELVIS WO CON from 07/22/2020 CR,RF FL SMALL BOWEL FOLLOW THROUGH from 07/23/2020 FINDINGS: KUB is obtained 8 hours after the beginning of the small-bowel series. Contrast has progressed into the small bowel and is throughout the colon. There remains some minimal prominence of the small bowel loops in the left mid abdominal region however, they appear less distended compared to the origination of the exam nasogastric tube remains present. Surgical clips are present in the left upper quadrant. IMPRESSION: Contrast is now present throughout the small bowel and colon. Small bowel loops in the left mid abdominal region appears somewhat less distended and may be due to improvement in local ileus or improvement in partial small bowel obstruction Dictated by: Rashid Garrido MD 07/23/2020 17:17 Rashid Garrido MD in [place] 07/23/2020 17:17
--- NOTE | 2020-07-23 19:24 | PC.NURSE ---
1 LARGE BM NOTED IN TOILET. 700 ML OF GREEN GASTRIC CONTENTS OUTPUT FROM NG CANISTER
--- NOTE | 2020-07-23 19:56 | XR_ITS ---
PROCEDURE: XR KUB CLINICAL INDICATION: FINAL SMALL BOWEL FILM Follow-up small bowel obstruction COMPARISON: CT CT ABDOMEN PELVIS WO CON from 07/22/2020 CR,RF FL SMALL BOWEL FOLLOW THROUGH from 07/23/2020 CR XR KUB from 07/23/2020 FINDINGS: Contrast is present throughout the colon. There remains a nondistended focal small bowel loops filled with contrast in the left mid abdominal region involving the jejunum which may represent an area of focal ileus. Nondistended small bowel is present distal to this region. Nasogastric tube remains in place. IMPRESSION: As above, no evidence of small-bowel obstruction Dictated by: Rashid Garrido MD 07/24/2020 05:57 Rashid Garrido MD in [place] 07/24/2020 05:57
[2020-07-23 20:00] VITALS: BP 124/56; PULSE 76; RESP 17; TEMP 36.9; O2SAT 96
--- NOTE | 2020-07-23 20:00 | PC.NURSE ---
pt did have a bowel movement at shift change, pt reports that it was formed
[2020-07-24 04:00] VITALS: BP 148/64; PULSE 67; RESP 17; TEMP 36.7; O2SAT 96
--- NOTE | 2020-07-24 04:23 | PC.NURSE ---
pt is AxOx4, has rested well t/o shift, has had no complaints of N/V this shift, no complaints of abdominal pain, has ambulated to bathroom independently and has had 2 bowel movements since beginning of shift, first BM patient reports was formed, second one appeared loose, lungs CTA and remains on room air
[2020-07-24 05:20] VITALS: BMI 25.3
--- NOTE | 2020-07-24 06:41 | PC.NURSE ---
pt had 650 mL out of NG this shift
--- NOTE | 2020-07-24 06:42 | HMH.ACPN2 ---
Internal Medicine - PN: Subj *Date: 07/24/20 *Time: 09:05 Interval history: Improvement in abdominal pain with decompression. No Fever, CP, HAMMER, dizziness. Pt feeling better. NG with adequate output. Continues to report flatus, had bowel movements overnight. No emesis. Ate full liquid diet this morning, no difficulty so far. Still has NG in place. Exam Vital signs and Labs for Last 24 Hours: Temp Pulse Resp BP Pulse Ox 98.0 F 67 17 148/64 H 96 07/24/20 04:00 07/24/20 04:00 07/24/20 04:00 07/24/20 04:00 07/24/20 04:00 Laboratory Results - last 24 hr 07/23/20 06:24: WBC 20.1 H* D, RBC 4.28 L, Hgb 13.4 L, Hct 40.0 L, MCV 93.5, MCH 31.2, MCHC 33.4, RDW 12.6, Plt Count 278, MPV 10.2, Neut % (Auto) 85.5 H, Lymph % (Auto) 9.8 L, [place] % (Auto) 4.5, Eos % (Auto) 0.1, Baso % (Auto) 0.1, Neut # (Auto) 17.2 H, Lymph # (Auto) 2.0, [place] # (Auto) 0.9, Eos # (Auto) 0.0, Baso # (Auto) 0.0, Total Counted 100, Neutrophils % (Manual) 83 H, Lymphocytes % (Manual) 10, Monocytes % (Manual) 5, Eosinophils % (Manual) 2, Platelet Estimate Normal, RBC Morphology Normal 07/23/20 06:24: Sodium 137, Potassium 3.8, Chloride 95 L, Carbon Dioxide 34 H D, Anion Gap 11.8, BUN 38 H, Creatinine 1.80 H, Estimated Creat Clear 38, Estimated GFR 37 L, Est GFR ( Amer) 45 L, Glucose 133 H, Calcium 9.6 I & O for Last 24 hours: Intake & Output 07/21/20 07/22/20 07/23/20 07/24/20 23:59 23:59 23:59 23:59 Intake Total 1000 / 1000 1458 / 1458 1469 / 1469 Output Total 800 / 800 1400 / 1800 1050 / 1050 Balance 200 / 200 58 / -342 419 / 419 Weight 78.528 kg 77.791 kg 77.706 kg Narrative: - *Routine HEENT Exam Head: Present: normocephalic Eye: Present: EOMI, PERRL ENT: Present: mucous membranes moist - *Routine Neck Exam Present: supple. Absent: lymphadenopathy - *Routine Respiratory Exam Present: CTA bilaterally - *Routine Cardiovascular Exam Present: RRR - *Routine Abdominal Exam Present: soft, no significant tenderness, active bowel sounds. NG tube in place, capped. - *Routine Extremities Exam Absent: cyanosis, clubbing, edema - *Routine Skin Exam Present: warm. Absent: rash - *Routine Neurological Exam Present: alert, oriented X3 Assessment and Plan (1) SBO (small bowel obstruction) Status: Acute Category: Medical Code(s): K56.609 - Unspecified intestinal obstruction, unspecified as to partial versus complete obstruction (2) HTN (hypertension) Status: Chronic Qualifiers: Hypertension type: essential hypertension Qualified Code(s): I10 - Essential (primary) hypertension Category: Medical Code(s): I10 - Essential (primary) hypertension (3) CAD (coronary artery disease) Status: Chronic Qualifiers: Coronary Disease-Associated Artery/Lesion type: [place] artery [place] vs. transplanted heart: [place] heart Associated angina: without angina Qualified Code(s): I25.10 - Atherosclerotic heart disease of [place] coronary artery without angina pectoris Category: Medical Code(s): I25.10 - Atherosclerotic heart disease of [place] coronary artery without angina pectoris (4) HLD (hyperlipidemia) Status: Chronic Qualifiers: Hyperlipidemia type: other hyperlipidemia Category: Medical Code(s): E78.5 - Hyperlipidemia, unspecified - Assessment and plan all Dx Assessment and Plan for all problems:: Patient doing well at this time. Improvement in abdominal exam. Tolerating full liquid diet this morning without emesis. If continues to keep food down as the day goes on, will remove NG tube. Passing gas and having bowel movements. Plan to advance diet with anticipated discharge tomorrow pending any complications or setbacks. Continue home blood pressure medication. Surgery consulted, appreciate their recommendations. No surgical intervention planned at this time.
--- NOTE | 2020-07-24 06:58 | P.PN_ITS ---
Subjective Patient reports: feels better, bowel movement Progress Note: A&P (1) SBO (small bowel obstruction) Status: Acute Assessment and plan: Patient is now having bowel movements. Follow-up films after his small bowel follow-through yesterday revealed contrast within the colon. Full liquid diet (the patient has requested to keep his nasogastric tube for now as his diet is slowly advanced) Exam Vital signs and Labs for Last 24 Hours: Temp Pulse Resp BP Pulse Ox 98.0 F 67 17 148/64 H 96 07/24/20 04:00 07/24/20 04:00 07/24/20 04:00 07/24/20 04:00 07/24/20 04:00 Laboratory Results - last 24 hr 07/23/20 06:24: WBC 20.1 H* D, RBC 4.28 L, Hgb 13.4 L, Hct 40.0 L, MCV 93.5, MCH 31.2, MCHC 33.4, RDW 12.6, Plt Count 278, MPV 10.2, Neut % (Auto) 85.5 H, Lymph % (Auto) 9.8 L, [place] % (Auto) 4.5, Eos % (Auto) 0.1, Baso % (Auto) 0.1, Neut # (Auto) 17.2 H, Lymph # (Auto) 2.0, [place] # (Auto) 0.9, Eos # (Auto) 0.0, Baso # (Auto) 0.0, Total Counted 100, Neutrophils % (Manual) 83 H, Lymphocytes % (Manual) 10, Monocytes % (Manual) 5, Eosinophils % (Manual) 2, Platelet Estimate Normal, RBC Morphology Normal 07/23/20 06:24: Sodium 137, Potassium 3.8, Chloride 95 L, Carbon Dioxide 34 H D, Anion Gap 11.8, BUN 38 H, Creatinine 1.80 H, Estimated Creat Clear 38, Estimated GFR 37 L, Est GFR ( Amer) 45 L, Glucose 133 H, Calcium 9.6 I & O for Last 24 hours: Intake & Output 07/21/20 07/22/20 07/23/20 07/24/20 11:59 11:59 11:59 11:59 Intake Total 2458 / 2458 1469 / 1469 Output Total 2200 / 2200 1050 / 1050 Balance 258 / 258 419 / 419 Weight 171 lb 8 oz 171 lb 5 oz Radiology Reports for the Last 24 Hours: Abdominal films yesterday afternoon (follow-up status post small bowel follow- through) reveal contrast within the small bowel and colon. - Constitutional no acute distress - *Routine Respiratory Exam Absent: respiratory distress - *Routine Cardiovascular Exam Present: RRR - *Routine Abdominal Exam Present: soft
[2020-07-24 07:25] LABS: Basophils # 0.1 K/mm3 (0-0.2); Basophils % 0.5 % (0.1-2.0); Eosinophils # 0.1 K/mm3 (0.0-0.4); Eosinophils % 0.9 % (0.1-12.0); Hematocrit 40.6 % (42.0-52.0); Hemoglobin 13.4 g/dL (14.1-18.0); Lymphocytes # 2.7 K/mm3 (0.7-4.5); Mean Corpuscular HGB Conc 33.1 g/dL (31.8-35.4); Mean Corpuscular Hemoglobin 31.1 pg (27.0-31.2); Mean Platelet Volume 10.4 fl (7.4-10.4); Monocytes # 1.1 K/mm3 (0.1-1.0); Monocytes % 8.3 % (1.7-9.3); Neutrophils # 9.4 K/mm3 (1.8-7.8); Neutrophils % 70.4 % (37.0-80.0); Platelet Count 270 K/mm3 (142-424); Red Blood Count 4.32 M/mm3 (4.60-6.20); Red Cell Distribution Width 12.5 % (11.5-17.5); White Blood Count 13.3 K/mm3 (4.8-10.8)
[2020-07-24 07:36] LABS: Blood Urea Nitrogen 51 mg/dl (9-20); Calcium 9.3 mg/dl (8.4-10.2); Chloride 89 mmol/L (98-107); Creatinine Clearance Estimated 31 mL/min (50-200); Estimated Glomerular Filt Rate 29 ml/min (>60); GFR (African American) 35 ML/MIN (>60); Glucose 121 mg/dl (74-100); Potassium 3.3 mmoL/L (3.5-5.1); Sodium 141 mmol/L (136-145)
[2020-07-24 07:43] LABS: Anion Gap 15.3 mEq/L (5-15)
[2020-07-24 07:54] LABS: Carbon Dioxide 40 mmol/L (22.0-30.0)
[2020-07-24 08:00] VITALS: BP 136/63; PULSE 77; RESP 20; TEMP 36.6; O2SAT 93
[2020-07-24 10:14] VITALS: BMI 25.4
[2020-07-24 16:00] VITALS: BP 140/65; PULSE 75; RESP 20; TEMP 36.9; O2SAT 94
--- NOTE | 2020-07-24 16:16 | PC.NURSE ---
Pt ambulating in the [facility] at this time
--- NOTE | 2020-07-24 17:47 | PC.NURSE ---
Per MD Duffyid, OK to remove pt NG tube.
--- NOTE | 2020-07-24 18:22 | PC.NURSE ---
Pt is A&Ox4. Pt has tolerated full liquid diet well. Pt has had x2 loose BM's this shift light brown in color. Active bowel sounds in all 4 quads. No other acute changes or complaints at this time.
[2020-07-24 19:48] VITALS: BP 137/59; PULSE 64; RESP 16; TEMP 36.9; O2SAT 96
[2020-07-25 04:00] VITALS: BP 114/61; PULSE 65; RESP 18; TEMP 36.8; O2SAT 94
--- NOTE | 2020-07-25 04:52 | PC.NURSE ---
pt is AxOx4, has rested well t/o shift, no complaints of N/V, did complain of indigestion at beginning of shift, pt does report passing gas this shift, bowel sounds are active, and no tenderness noted in abdomen, remains on room air, lungs CTA
[2020-07-25 05:00] VITALS: BMI 26.9
[2020-07-25 07:17] LABS: Basophils % 0.3 % (0.1-2.0); Eosinophils # 0.3 K/mm3 (0.0-0.4); Eosinophils % 3.3 % (0.1-12.0); Hematocrit 33.9 % (42.0-52.0); Lymphocytes # 2.5 K/mm3 (0.7-4.5); Lymphocytes % 29.6 % (10-50); Mean Corpuscular HGB Conc 33.8 g/dL (31.8-35.4); Mean Corpuscular Volume 91.7 fl (80-94); Mean Platelet Volume 10.8 fl (7.4-10.4); Monocytes # 0.7 K/mm3 (0.1-1.0); Monocytes % 8.7 % (1.7-9.3); Neutrophils % 58.1 % (37.0-80.0); Platelet Count 219 K/mm3 (142-424); Red Blood Count 3.69 M/mm3 (4.60-6.20); Red Cell Distribution Width 12.8 % (11.5-17.5); White Blood Count 8.5 K/mm3 (4.8-10.8)
[2020-07-25 07:35] LABS: Alanine Aminotransferase 14 U/L (12-78); Albumin Level 3.3 g/dl (3.5-5.0); Albumin/Globulin Ratio 1.3 (1.1-1.8); Alkaline Phosphatase 57 U/L (38-126); Anion Gap 7.4 mEq/L (5-15); Aspartate Amino Transferase 27 U/L (17-59); Bilirubin,Total 0.3 mg/dl (0.2-1.3); Blood Urea Nitrogen 32 mg/dl (9-20); Calcium 8.4 mg/dl (8.4-10.2); Carbon Dioxide 35 mmol/L (22.0-30.0); Chloride 96 mmol/L (98-107); Creatinine Clearance Estimated 43 mL/min (50-200); Estimated Glomerular Filt Rate 39 ml/min (>60); GFR (African American) 48 ML/MIN (>60); Globulin 2.6 g/dL (1.3-3.2); Glucose 103 mg/dl (74-100); Potassium 3.4 mmoL/L (3.5-5.1); Sodium 135 mmol/L (136-145); Total Protein,Serum 5.9 g/dl (6.3-8.2)
[2020-07-25 08:00] VITALS: BP 150/54; PULSE 70; RESP 18; TEMP 36.9; O2SAT 97
[2020-07-25 08:09] LABS: Hemoglobin 11.6 g/dL (14.1-18.0)
--- NOTE | 2020-07-25 08:16 | HMH.DCSUM ---
General - General Admission date:: 07/22/20 Discharge date: 07/25/20 HPI HPI: 74-year-old white male with history of recurrent bowel obstructions-he relates this to an injury in the 1980s in which he was pushing down a tree and the tree came back and hit me in the belly. He reports that since that time he has had bowel obstructions every 10 years and that he comes to the emergency department and gets admitted with an NG tube and then he is fine. He thinks that he is precipitated this particular bowel obstruction by eating lots of beans and the husks of the beans hung up on something in there. He reports that since admission last night he feels much better and that it actually had some flatulence. He denies melena, hematochezia or coffee-ground emesis. Hospital Course Hospital Course: Patient was admitted as noted, NG tube was placed with dramatic relief of patient's symptoms. He very quickly-over the next 12 hours-begin to have passage of flatulence. Was able to have the NG tube removed in 24 hours and over the next 24 to 48 hours progressed to a full liquid diet with no problems, this morning he feels great, reports that he is passing gas, some formed stool no nausea, no distention, no vomiting, wishes to be discharged. Labs look better with resolution of his acute kidney injury. Plan will be to to discharge home, low residue diet was discussed, follow-up with his primary care physician in [place]. He will watch his diet carefully and instructions about need to follow-up in the ER were given. Objective Vital signs: Temp Pulse Resp BP Pulse Ox 98.4 F 70 18 150/54 H 97 07/25/20 08:00 07/25/20 08:00 07/25/20 08:00 07/25/20 08:00 07/25/20 08:00 no acute distress - *Routine HEENT Exam Head: Present: normocephalic Eye: Present: EOMI, PERRL ENT: Present: mucous membranes moist - *Routine Neck Exam Present: supple - *Routine Respiratory Exam Present: CTA bilaterally - *Routine Cardiovascular Exam Present: RRR - *Routine Abdominal Exam Present: soft, normoactive bowel sounds. Absent: tenderness - *Routine Extremities Exam Absent: cyanosis, clubbing, edema - *Routine Skin Exam Present: warm. Absent: rash - Detailed Eye Exam Eyelids: Bilateral normal inspection Results Labs on day of discharge: Labs from last 24 hours 07/25/20 07/25/20 06:58 06:58 WBC 8.5 D RBC 3.69 L Hgb 11.6 L D Hct 33.9 L MCV 91.7 MCH 31.0 MCHC 33.8 RDW 12.8 Plt Count 219 MPV 10.8 H Neut % (Auto) 58.1 Lymph % (Auto) 29.6 [place] % (Auto) 8.7 Eos % (Auto) 3.3 Baso % (Auto) 0.3 Neut # (Auto) 5.0 Lymph # (Auto) 2.5 [place] # (Auto) 0.7 Eos # (Auto) 0.3 Baso # (Auto) 0.0 Sodium 135 L Potassium 3.4 L Chloride 96 L Carbon Dioxide 35 H Anion Gap 7.4 BUN 32 H D Creatinine 1.70 H D Estimated Creat Clear 43 Estimated GFR 39 L Est GFR ( Amer) 48 L D Glucose 103 H Calcium 8.4 Magnesium 2.0 Total Bilirubin 0.3 AST 27 ALT 14 D Alkaline Phosphatase 57 Total Protein 5.9 L D Albumin 3.3 L Globulin 2.6 Albumin/Globulin Ratio 1.3 DS: Diagnosis - Discharge Diagnosis (1) SBO (small bowel obstruction) Status: Resolved (2) HTN (hypertension) Status: Chronic (3) CAD (coronary artery disease) Status: Chronic (4) HLD (hyperlipidemia) Status: Chronic Discharge Plan - Patient Discharge Instructions ACTIVITY: Continue current activity DIET: continue same diet Patient Instructions: Small Bowel Obstruction, DI for Acute Abdominal Pain - Follow up Plan Follow up with: Cruzito Preciado [Primary Care Provider] - 2 weeks Disposition: Home, Self-Fdc Medications: Home Medications Medication Instructions Recorded Confirmed Type Aspirin [Low Dose Aspirin EC] 81 mg PO DAILY 05/19/17 07/23/20 History Clopidogrel Bisulfate [Plavix] 75 mg PO DAILY 07/22/20 07/22/20 History E
== END 2020-07-25 10:15 | disposition home or self-care (01) ==
LOC: ER 18:05 → 2ND 07-23 08:06
PROVIDERS: Internal Medicine Adolescent Medicine; Surgery; Admitting Provider Internal Medicine Adolescent Medicine; Emergency Provider Family Medicine; PCP Family Medicine; Visit Provider Internal Medicine Adolescent Medicine
DX: K56.609 Unspecified intestinal obstruction, unspecified as to partial versus complete obstruction (principal); I42.9 Cardiomyopathy, unspecified; I25.10 Atherosclerotic heart disease of native coronary artery without angina pectoris; I10 Essential (primary) hypertension; E78.5 Hyperlipidemia, unspecified; Z87.891 Personal history of nicotine dependence; Z79.02 Long term (current) use of antithrombotics/antiplatelets; Z95.5 Presence of coronary angioplasty implant and graft
CPT/HCPCS: 71045; 74018; 74176; 74250; 80048; 80053; 83735; 85007; 85025; 93005; 96365; 96366; 96375; 99284; G0378; J2405; U0003

== ENCOUNTER → 2021-03-23 06:35 | Outpatient (CLI) | payer MEDICARE, SELFPAY ==
--- NOTE | 2021-03-23 06:36 | NM_ITS ---
APPROVED REPORT Exam: Nuclear Stress Test Indication: Chest pain, Abnormal EKG, HTN, CAD, High cholesterol Patient Location: Outpatient Stress Tech: Romina Martinez OR Tech:Bernarda Galo, ARRT, RT (R)(N) Ht: 5 ft 9 in Wt: 180 lbs HR: 57 bpm BP: 169/67 mmHg BSA: 1.98 m2 BMI: 26.5 History: Chest pain, Abnormal EKG, HTN, CAD, High cholesterol Procedure: Patient received a 0.4 mg of intravenous Lexiscan, resting heart rate 57 bpm, resting blood pressure 169/67 mmHg, with Lexiscan maximum heart rate achived was 101 bpm which is Less than 85 % of the maximum predicted heart rate and blood pressure was 146/69 mmHg. With Lexiscan, patient denied any complaint of chest pain. Electrocardiogram Resting electrocardiogram showed sinus bradycardia first-degree AV block, left bundle branch block with Lexiscan there is less than 1.[address] segment depression noted from the baseline EKG. The EKG portion of the Lexiscan is nondiagnostic. Cardiac Stress and Resting SPECT Images: Cardiac Stress and Resting SPECT images were obtained using technetium 99m Myoview 29.8 mCi stress and 10.61 mCi at rest. Gated SPECT for analysis of segmental wall motion and calculation of the ejection fraction also done. Prone images were also obtained. Cardiac stress and resting SPECT images show reversible ischemia involving the apex and anteroseptal wall, calculated ejection fraction 52% with no regional wall motion abnormality, right ventricle is normal size and contractility. Conclusion: 1. The EKG portion of the dipyridamole sestamibi is nondiagnostic. 2. Scintigraphic evidence of reversible ischemia involving the apex and anteroseptal wall as described above, compared right ejection fraction is 52% with no regional wall motion abnormality, right ventricle is normal size and contractility. 3. Abnormal Lexiscan Myoview study. Electronically signed by : Ryan Edwards MD 03/23/2021 18:27:41
--- NOTE | 2021-03-23 06:36 | CA_ITS ---
APPROVED REPORT EXAM: Comprehensive 2D, Doppler, and color-flow Echocardiogram Build Automation Engineer: Ariane Sahu RVT Ht: 5 ft 9 in Wt: 185lbs BSA: 2.00 BP: 168/74 mmHg Indications: CAD,CM,ABN EKG,SOA,HTN,HLD 2D Dimensions LVOT 2.08 cm (M/F) 1.5-2.5 M-Mode Dimensions RVDd 3.73 cm (0.9-2.6) LA Diam 3.45 cm (1.9-4.0) LVDd 5.46 cm (3.5-5.7) Ao Diam 3.47 cm (2.0-3.7) LVDs 3.61 cm (3.5-5.7) IVSd 0.92 cm (0.6-1.1) PWd 0.72 cm (0.6-1.1) EF (Teich) 62.20% FS 33.90% EDV (Teich) 145.00 mL TAPSE 2.10 (<1.7) ESV (Teich) 54.80 mL LV Diastology E Decel Time 170.00 (160-240 msec) E/A Ratio 0.8 MED E' 4.40 (< 7 cm/sec) E'/MED E' Ratio 17.84 (>14) LAT E' 7.70 (<10 cm/sec) E/LAT E' Ratio 10.19 (>14) Mitral Valve MV E Max Tevin. 79.00 (40-130 cm/s) MV A Velocity 95.00 (40-130 cm/s) E/A Ratio 0.83 MV Decel. Time 170.00 (160-240 ms) MV PHT 50.00 ms Pulmonary Valve PV Peak Velocity 171.00 (50-150 cm/s) Tricuspid Valve TR P. Velocity 192.00 cm/s RAP Estimate 10.00 mmHg RVSP 24.80 mmHg Left Ventricle Left atrium is mildly enlarged, left ventricle is normal size, mild concentric left ventricular hypertrophy, visually estimated ejection fraction 50%, there is abnormal septal motion, mid to distal septum and apical wall is moderately hypokinetic. Grade 1 diastolic dysfunction seen without tissue Doppler evidence of raise left atrial pressure. Right Ventricle Right atrium and right ventricle are normal size and contractility. Aortic Valve Aortic valve is minimally thickened and fibrosed, there is no aortic stenosis or aortic insufficiency. Mitral Valve Mitral valve grossly normal, there is trace mitral regurgitation. Tricuspid Valve Tricuspid grossly normal, there is trace tricuspid regurgitation, tricuspid regurgitation jet velocity is inadequate for calculation of the right ventricular systolic pressure. Pulmonic Valve Pulmonic valve is poorly visualized. Great Vessels Aortic root is normal size. Inferior vena cava is normal size with normal inspiratory collapse. Pericardium No significant pericardial effusion noted. Conclusion 1. Normal left ventricular size, mild concentric left ventricular hypertrophy, visually estimated ejection fraction 50% with segmental wall motion abnormality described above, there is abnormal septal motion, grade 1 diastolic dysfunction seen without tissue Doppler evidence of raise left atrial pressure. 2. Trace mitral and tricuspid regurgitation. 3. No significant pericardial effusion noted. 4. Inferior vena cava is normal size with normal inspiratory collapse. Electronically signed by : Ryan Edwards MD 03/23/2021 19:14:05
--- NOTE | 2021-03-23 06:36 | CA_ITS ---
APPROVED REPORT Exam: Pharmacologic Technologist: Romina Martinez, Ht: 5 ft 9 in Wt: 185 lbs BSA: 2.00 m2 HR: 57 bpm BP: 169/67 mmHg Medical History Medications: Aspirin,,,,, Losartan,,,,, Plavix,,,,, Evolocumab,,,,, Stress Test Details Test: LEXISCAN HR Resting HR: 59 bpm Max Heart Rate (APMHR): 143.975366 bpm Max HR Achieved: 103 bpm Target HR (85% APMHR): 121.624515 bpm % of APMHR: 72.03 Recovery HR: 70 bpm BP Resting BP: 169/67 mmHg Max BP: 172/74 mmHg Recovery BP: 165.0/69.0 mmHg ECG Resting ECG: Sinus joseluis with very long 1* AV block, LBBB Clinical Exercise duration: 04:02 min Highest Stage Achieved: Exercise capacity: 1.0 METs Stress ECG Conclusion Symptoms: SOA, headache. No CP. Arrhythmias/Ectopy: 1.8 second pause in recovery phase. ST-T Changes: Mild exaggeration of baseline abns. Conclusion: Non-diagnostic Lexiscan stress. Myoview images reported separately. Electronically signed by : Ryan Edwards MD 03/23/2021 18:16:10
--- NOTE | 2021-03-23 09:08 | HMH.ITSHM ---
Current Home Medications as stated by this patient Willy Richardson or sales representative printing paper. []PANTOPRAZOLE FAMOTIDINE EVOLOCUMAB LOSARTAN CLOPIDOGREL ASA
== END ==
PROVIDERS: PCP Family Medicine; Visit Provider Urology
DX: E78.5 Hyperlipidemia, unspecified (principal); I11.9 Hypertensive heart disease without heart failure; I20.9 Angina pectoris, unspecified; I42.9 Cardiomyopathy, unspecified; I65.29 Occlusion and stenosis of unspecified carotid artery; R06.02 Shortness of breath; R94.31 Abnormal electrocardiogram [ECG] [EKG]; Z95.5 Presence of coronary angioplasty implant and graft; K56.609 Unspecified intestinal obstruction, unspecified as to partial versus complete obstruction
CPT/HCPCS: 78452; 93017; 93306; A9502; J2785

== ENCOUNTER → 2021-04-08 13:07 | Outpatient (CLI) | payer MEDICARE, SELFPAY ==
[2021-04-08 14:00] LABS: Basophils # 0.1 K/mm3 (0-0.2); Basophils % 0.9 % (0.1-2.0); Eosinophils # 0.4 K/mm3 (0.0-0.4); Eosinophils % 3.7 % (0.1-12.0); Hematocrit 38.7 % (42.0-52.0); Hemoglobin 13.2 g/dL (14.1-18.0); Lymphocytes % 31.2 % (10-50); Mean Corpuscular Hemoglobin 31.4 pg (27.0-31.2); Mean Corpuscular Volume 92.5 fl (80-94); Mean Platelet Volume 10.4 fl (7.4-10.4); Monocytes # 0.6 K/mm3 (0.1-1.0); Monocytes % 6.8 % (1.7-9.3); Neutrophils # 5.5 K/mm3 (1.8-7.8); Neutrophils % 57.3 % (37.0-80.0); Platelet Count 368 K/mm3 (142-424); Red Blood Count 4.19 M/mm3 (4.60-6.20); Red Cell Distribution Width 12.8 % (11.5-17.5); White Blood Count 9.5 K/mm3 (4.8-10.8)
[2021-04-08 14:58] LABS: Alanine Aminotransferase 16 U/L (12-78); Albumin Level 4.4 g/dl (3.5-5.0); Albumin/Globulin Ratio 1.4 (1.1-1.8); Alkaline Phosphatase 80 U/L (38-126); Anion Gap 9.7 mEq/L (5-15); Aspartate Amino Transferase 28 U/L (17-59); Bilirubin,Total 0.6 mg/dl (0.2-1.3); Blood Urea Nitrogen 21 mg/dl (9-20); Calcium 9.6 mg/dl (8.4-10.2); Carbon Dioxide 29 mmol/L (22.0-30.0); Chloride 102 mmol/L (98-107); Estimated Glomerular Filt Rate 39 ml/min (>60); GFR (African American) 48 ML/MIN (>60); Globulin 3.2 g/dL (1.3-3.2); Glucose 91 mg/dl (74-100); Potassium 4.7 mmoL/L (3.5-5.1); Sodium 136 mmol/L (136-145); Total Protein,Serum 7.6 g/dl (6.3-8.2)
[2021-04-08 15:26] LABS: Prostate Specific Ag Screen 38.3 ng/ml (0.0-4.0)
== END ==
PROVIDERS: Visit Provider Internal Medicine
DX: C61 Malignant neoplasm of prostate (principal); Z12.5 Encounter for screening for malignant neoplasm of prostate
CPT/HCPCS: 36415; 80053; 84403; 85025; G0103

== ENCOUNTER → 2021-04-09 09:12 | Outpatient (CLI) | payer MEDICARE, SELFPAY ==
--- NOTE | 2021-04-09 09:15 | CT_ITS ---
PROCEDURE INFORMATION: Exam: CT Abdomen And Pelvis With Contrast Exam date and time: 04/09/2021 9:15 AM Age: 75 years old Clinical indication: Condition or disease; Other: Prostate; Additional info: Malignant neoplasm of prostate TECHNIQUE: Imaging protocol: Computed tomography of the abdomen and pelvis with contrast. Radiation optimization: All CT scans at this facility use at least one of these dose optimization techniques: automated exposure control; mA and/or kV adjustment per patient size (includes targeted exams where dose is matched to clinical indication); or iterative reconstruction. Contrast material: ISOVUE; Contrast volume: 75 ml; Contrast route: IV; COMPARISON: CT ABDOMEN PELVIS WO CON 07/22/2020 5:10 PM FINDINGS: Liver: Normal. No mass. Gallbladder and bile ducts: Gallstones in the gallbladder. Pancreas: Normal. No ductal dilation. 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 Adrenal glands: Normal. No mass. Kidneys and ureters: 2.4 cm simple cyst lateral right kidney 2.1 cm cyst lower pole right kidney 17 mm simple cyst lateral left kidney . No follow-up imaging recommended . Stomach and bowel: Unremarkable. No obstruction. No mucosal thickening. Appendix: No evidence of appendicitis. Intraperitoneal space: Unremarkable. No free air. No significant fluid collection. Vasculature: Unremarkable. No abdominal aortic aneurysm. Lymph nodes: Unremarkable. No enlarged lymph nodes. Urinary bladder: Unremarkable as visualized. Reproductive: Unremarkable as visualized. Bones/joints: There is a bilateral spondylolysis defect of the L5-S1 level, with grade 1 spondylolisthesis . Soft tissues: Unremarkable. IMPRESSION: 1. There is a bilateral spondylolysis defect of the L5-S1 level, with grade 1 spondylolisthesis . 2. 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 3. Gallstones in the gallbladder. COMMENTS: Consistent with the [employer]'s Incidental Findings Committee white paper (J Am Jaspreet Radiol 2018): Any incidental renal lesion less than 1 cm or classified as too small to characterize, or any incidental cystic renal lesion characterized as simple-appearing, is likely benign. No follow-up imaging is recommended for these lesions per consensus recommendations based on imaging criteria.
== END ==
PROVIDERS: PCP Family Medicine; Visit Provider Urology
DX: C61 Malignant neoplasm of prostate (principal)
CPT/HCPCS: 74177; Q9967

== ENCOUNTER → 2021-04-10 11:23 | Outpatient (CLI) | payer MEDICARE, SELFPAY | PROVIDERS: Visit Provider Internal Medicine | DX: Z01.812 Encounter for preprocedural laboratory examination (principal); Z20.822 Contact with and (suspected) exposure to COVID-19 | CPT/HCPCS: C9803; U0003; U0005 ==

== ENCOUNTER 2021-04-12 09:12 | Day surgery (SDC) | payer MEDICARE, SELFPAY ==
[2021-04-12] VITALS (16 sets, daily range): BP systolic 125–174; BP diastolic 59–86; PULSE 48–80; RESP 16–18; TEMP 36.9; O2SAT 97–100; BMI 27.0
--- NOTE | 2021-04-12 | IR_ITS ---
APPROVED REPORT Patient Location: Outpatient [facility] J[facility] Grinder: JUVENCIO Zamorano RT (R) PROCEDURES Left heart catheterization Selective coronary angiogram Drug-eluting stent deployment to the posterior descending artery Drug-eluting stent deployment to the mid dominant right coronary Drug-eluting stent deployment to the left main artery extending into the proximal ID Drug-eluting stent deployment to the ostial proximal circumflex artery INDICATION Coronary artery disease, High risk abnormal Myoview, Angina pectoris Informed consent was obtained prior to the procedure. COMPLICATIONS NONE Estimated Blood Loss: LESS THAN 10 ML TECHNIQUE One percent lidocaine used to anesthetize the right anterior aspect of the wrist. The right radial artery was accessed via the Seldinger technique. A 6 O[place]i sheath was placed in the right radial artery. 2.5 mg of verapamil, 800 mcg of nitroglycerin, 1mg Lidocaine and 5000 U Heparin were given through the arterial sheath. The [place] 1 catheter was also used to perform left heart catheterization, left ventriculogram and selective coronary angiogram. At the end the diagnostic angiogram therapeutic heparin was administered giving a therapeutic ACT and the guide catheter was placed in the right coronary artery. A Choice PT extra-support wire was placed distally and a 3 mm x 15 mm resolute Soy stent was deployed in the distal right coronary extending into the posterior descending artery and deployed at 18 pattie. An additional 3 mm x 8 mm resolute [place] stent was deployed at 16 pattie and then at 18 pattie in between an old stent and the first stent which was placed today. This 8 mm stent overlapped between the old and the new stent. Following this a 3.5 x 38 mm resolute [place] stent was then placed in the mid right coronary artery and deployed at 18 pattie reducing the stenosis to 0%. NICOLASA-3 flow was present before and after the procedure. Following this the guide catheter was placed in the left main artery and a Choice PT extra-support wire was placed in the left anterior descending artery. A 4 mm x 15 mm resolute Soy stent was placed in the left main artery into the proximal LAD and deployed at 18 pattie. Following this an additional wire was placed in the circumflex artery and a 2.5 x 12 mm balloon was used to open the struts going into the circumflex artery. Following this a 3.5 x 12 mm resolute Soy stent was placed in the distal left main artery extending into the circumflex artery and deployed at 18 pattie. The wire and balloon were removed and a 4 mm x 12 mm balloon was then placed in the left main artery extending into the LAD and deployed at 20 pattie to further dilate the left main LAD system while making sure none of the circumflex artery struts impinged upon the left main artery or LAD. NICOLASA-3 flow was present before and after the procedure down the left main artery LAD and circumflex artery. After achieving excellent graft results the apparatus was removed the sheath was removed and hemostasis was achieved using TR banding patient was transferred to the postop putting her stable condition ANGIOGRAPHIC RESULTS The left main artery Had a distal greater than 50% eccentric stenosis The left anterior descending artery Has a stent in the ostial through proximal and mid segment which is widely patent with minimal in-stent restenosis. The LAD is a large-caliber vessel The circumflex artery Is a nondominant yet still large vessel with a hazy ostial 40% stenosis followed by a stent. The right coronary artery Is a large dominant vessel and has proximal 30 to 40% stenosis with to mid vessel circumferential soft plaque lesions creating at least a 70% stenosis with additional 40 to 50% flo
--- NOTE | 2021-04-12 15:02 | HMH.PHACLD ---
Willy Richardson has received discharge medication counseling on the following medications: PATIENT IS CURRENTLY TAKING ASPIRIN 81 MG EC DAILY, PLAVIX 75 MG DAILY, AND LOSARTAN 100 MG DAILY. PATIENT CAN NOT TOLERATE STATINS AND HR IS TOO LOW FOR BETA CHANDA AT THIS TIME.
[2021-04-12 16:02] LABS: CATHL Activated Clotting Time > 400 SEC (74-125)
== END 2021-04-12 18:15 | disposition home or self-care (01) ==
LOC: CATHLAB 09:14
PROVIDERS: PCP Family Medicine; Visit Provider Internal Medicine
DX: I25.118 Atherosclerotic heart disease of native coronary artery with other forms of angina pectoris (principal); R94.39 Abnormal result of other cardiovascular function study; Z79.02 Long term (current) use of antithrombotics/antiplatelets; I42.9 Cardiomyopathy, unspecified; I11.0 Hypertensive heart disease with heart failure; Z95.5 Presence of coronary angioplasty implant and graft; I65.29 Occlusion and stenosis of unspecified carotid artery; Z79.899 Other long term (current) drug therapy
CPT/HCPCS: 85347; 92928; 93458; 99152; 99153; C1725; C1769; C1876; C9600; J1644; Q9967

== ENCOUNTER → 2021-04-20 08:42 | Outpatient (CLI) | payer MEDICARE, SELFPAY ==
[2021-04-20 09:01] LABS: Basophils # 0.1 K/mm3 (0-0.2); Basophils % 1.3 % (0.1-2.0); Eosinophils # 0.4 K/mm3 (0.0-0.4); Eosinophils % 5.9 % (0.1-12.0); Hematocrit 37.5 % (42.0-52.0); Hemoglobin 12.1 g/dL (14.1-18.0); Lymphocytes # 2.6 K/mm3 (0.7-4.5); Lymphocytes % 35.7 % (10-50); Mean Corpuscular HGB Conc 32.4 g/dL (31.8-35.4); Mean Corpuscular Hemoglobin 30.7 pg (27.0-31.2); Mean Corpuscular Volume 94.8 fl (80-94); Mean Platelet Volume 9.3 fl (7.4-10.4); Monocytes # 0.6 K/mm3 (0.1-1.0); Monocytes % 8.8 % (1.7-9.3); Neutrophils # 3.5 K/mm3 (1.8-7.8); Neutrophils % 48.3 % (37.0-80.0); Platelet Count 378 K/mm3 (142-424); Red Blood Count 3.95 M/mm3 (4.60-6.20); Red Cell Distribution Width 12.5 % (11.5-17.5); White Blood Count 7.1 K/mm3 (4.8-10.8)
[2021-04-20 09:05] LABS: Chloride 106 mmol/L (98-107); Potassium 4.6 mmoL/L (3.5-5.1); Sodium 141 mmol/L (136-145)
[2021-04-20 09:08] LABS: Anion Gap 12.6 mEq/L (5-15); Blood Urea Nitrogen 20 mg/dl (9-20); Carbon Dioxide 27 mmol/L (22.0-30.0); Estimated Glomerular Filt Rate 45 ml/min (>60); GFR (African American) 55 ML/MIN (>60)
[2021-04-20 09:09] LABS: Calcium 8.9 mg/dl (8.4-10.2); Glucose 105 mg/dl (74-100)
[2021-04-20 10:07] LABS: Alanine Aminotransferase 26 U/L (12-78); Albumin Level 4.2 g/dl (3.5-5.0); Alkaline Phosphatase 69 U/L (38-126); Aspartate Amino Transferase 53 U/L (17-59); Bilirubin,Indirect 0.3 mg/dL (0.0-0.9); Bilirubin,Total 0.3 mg/dl (0.2-1.3); Bilirubin,Unconjugated 0.2 mg/dL (0.0-1.1); Cholesterol 162 mg/dl (140-200); Total Protein,Serum 7.4 g/dl (6.3-8.2); Triglycerides 135 mg/dl (30-150); VLDL Cholesterol 27 mg/dL (0-40)
[2021-04-20 10:08] LABS: Chol/HDL Ratio 3.1 (1-3.5); HDL Cholesterol 52 mg/dl (40-60)
[2021-04-20 10:20] LABS: Direct LDL Cholesterol 78.92 mg/dL (100-129)
== END ==
PROVIDERS: Physician Assistant; Visit Provider Internal Medicine
DX: E11.9 Type 2 diabetes mellitus without complications (principal)
CPT/HCPCS: 36415; 80048; 80061; 80076; 85025

== ENCOUNTER → 2021-06-28 13:08 | Outpatient (CLI) | payer MEDICARE, SELFPAY ==
[2021-06-28 14:29] LABS: Chloride 103 mmol/L (98-107); Potassium 4.3 mmoL/L (3.5-5.1); Sodium 133 mmol/L (136-145)
[2021-06-28 14:31] LABS: Alanine Aminotransferase 29 U/L (12-78); Aspartate Amino Transferase 33 U/L (17-59); Blood Urea Nitrogen 24 mg/dl (9-20); Estimated Glomerular Filt Rate 42 ml/min (>60); GFR (African American) 51 ML/MIN (>60)
[2021-06-28 14:32] LABS: Albumin Level 4.3 g/dl (3.5-5.0); Albumin/Globulin Ratio 1.4 (1.1-1.8); Alkaline Phosphatase 74 U/L (38-126); Anion Gap 8.3 mEq/L (5-15); Bilirubin,Total 0.6 mg/dl (0.2-1.3); Calcium 8.6 mg/dl (8.4-10.2); Carbon Dioxide 26 mmol/L (22.0-30.0); Globulin 3.1 g/dL (1.3-3.2); Glucose 108 mg/dl (74-100); Total Protein,Serum 7.4 g/dl (6.3-8.2)
[2021-06-28 20:16] LABS: Prostate Specific Ag, Diagnost 9.36 ng/ml (0.0-4.0)
[2021-07-04 12:18] LABS: Testosterone, Total, LC/MS 25.2 ng/dL (264.0-916.0)
== END ==
PROVIDERS: Visit Provider Urology
DX: C61 Malignant neoplasm of prostate (principal)
CPT/HCPCS: 36415; 80053; 84153; 84403

== ENCOUNTER → 2021-08-31 09:47 | Outpatient (CLI) | payer MEDICARE, SELFPAY ==
[2021-08-31 10:33] LABS: Chloride 107 mmol/L (98-107); Sodium 140 mmol/L (136-145)
[2021-08-31 10:34] LABS: Potassium 4.9 mmoL/L (3.5-5.1)
[2021-08-31 10:38] LABS: Alanine Aminotransferase 47 U/L (12-78); Alkaline Phosphatase 103 U/L (38-126); Anion Gap 10.9 mEq/L (5-15); Aspartate Amino Transferase 40 U/L (17-59); Bilirubin,Total 0.4 mg/dl (0.2-1.3); Blood Urea Nitrogen 27 mg/dl (9-20); Calcium 9.5 mg/dl (8.4-10.2); Carbon Dioxide 27 mmol/L (22.0-30.0); Estimated Glomerular Filt Rate 49 ml/min (>60); GFR (African American) 59 ML/MIN (>60); Glucose 112 mg/dl (74-100); Total Protein,Serum 6.9 g/dl (6.3-8.2)
[2021-08-31 13:48] LABS: Prostate Specific Ag, Diagnost 0.088 ng/ml (0.0-4.0)
[2021-08-31 16:16] LABS: Albumin/Globulin Ratio 1.4 (1.1-1.8); Globulin 2.9 g/dL (1.3-3.2)
[2021-09-01 08:17] LABS: Testosterone,Total <3 ng/dL (264-916)
== END ==
PROVIDERS: Visit Provider Urology
DX: C61 Malignant neoplasm of prostate (principal)
CPT/HCPCS: 36415; 80053; 84153; 84403

== ENCOUNTER → 2021-11-15 14:12 | Outpatient (CLI) | payer MEDICARE, SELFPAY ==
[2021-11-15 15:39] LABS: Albumin/Globulin Ratio 1.4 (1.1-1.8); Anion Gap 12.9 mEq/L (5-15)
[2021-11-15 16:24] LABS: Alanine Aminotransferase 36 U/L (12-78); Albumin Level 4.1 g/dl (3.5-5.0); Alkaline Phosphatase 94 U/L (38-126); Aspartate Amino Transferase 34 U/L (17-59); Bilirubin,Total < 0.1 mg/dl (0.2-1.3); Blood Urea Nitrogen 30 mg/dl (9-20); Calcium 9.4 mg/dl (8.4-10.2); Carbon Dioxide 27 mmol/L (22.0-30.0); Chloride 102 mmol/L (98-107); Estimated Glomerular Filt Rate 42 ml/min (>60); GFR (African American) 51 ML/MIN (>60); Glucose 134 mg/dl (74-100); Potassium 4.9 mmoL/L (3.5-5.1); Prostate Specific Ag, Diagnost < 0.064 ng/ml (0.0-4.0); Sodium 137 mmol/L (136-145); Total Protein,Serum 7.1 g/dl (6.3-8.2)
[2021-11-20 18:09] LABS: Testosterone, Total, LC/MS 4.1 ng/dL (.)
== END ==
PROVIDERS: PCP Family Medicine; Visit Provider Urology
DX: C61 Malignant neoplasm of prostate (principal)
CPT/HCPCS: 36415; 80053; 84153; 84403

== ENCOUNTER 2022-01-02 01:08 | Emergency (ER) | payer MEDICARE, SELFPAY ==
[2022-01-02] VITALS (11 sets, daily range): BP systolic 174–196; BP diastolic 79–107; PULSE 61–88; RESP 14–19; TEMP 36.6–36.8; O2SAT 97–100; BMI 27.3
--- NOTE | 2022-01-02 01:10 | CT_ITS ---
PROCEDURE INFORMATION: Exam: CT Head Without Contrast Exam date and time: 01/02/2022 1:11 AM Age: 76 years old Clinical indication: Stroke-like symptoms; Speech disturbance and other: Elevated BP, stuttering speech; Additional info: Elevated blood pressure stuttering speech TECHNIQUE: Imaging protocol: Computed tomography of the head without contrast. Radiation optimization: All CT scans at this facility use at least one of these dose optimization techniques: automated exposure control; mA and/or kV adjustment per patient size (includes targeted exams where dose is matched to clinical indication); or iterative reconstruction. Other technique: STROKE PROTOCOL was implemented. COMPARISON: CT HEAD/BRAIN WO CON 12/11/2019 10:39 AM FINDINGS: Brain: Atrophy and chronic small vessel ischemic changes. No hemorrhage. No mass effect or midline shift. Cerebral ventricles: No ventriculomegaly. Paranasal sinuses: Mucosal thickening ethmoid air cells and right sphenoid sinus. No fluid levels. Mastoid air cells: Visualized mastoid air cells are well aerated. Bones/joints: Unremarkable. No acute fracture. Soft tissues: Unremarkable. IMPRESSION: Chronic changes in the brain but no acute intracranial abnormality. ASSESSMENT: ASPECTS ([place] Stroke Program Early CT Score) is 10.
[2022-01-02 01:23] LABS: Basophils # 0.1 K/mm3 (0-0.2); Basophils % 1.3 % (0.1-2.0); Eosinophils # 0.4 K/mm3 (0.0-0.4); Eosinophils % 5.5 % (0.1-12.0); Hematocrit 35.7 % (42.0-52.0); Hemoglobin 11.5 g/dL (14.1-18.0); Lymphocytes # 2.6 K/mm3 (0.7-4.5); Lymphocytes % 35.3 % (10-50); Mean Corpuscular HGB Conc 32.1 g/dL (31.8-35.4); Mean Corpuscular Hemoglobin 32.5 pg (27.0-31.2); Mean Corpuscular Volume 101.2 fl (80-94); Mean Platelet Volume 10.5 fl (7.4-10.4); Monocytes # 0.6 K/mm3 (0.1-1.0); Monocytes % 7.7 % (1.7-9.3); Neutrophils # 3.7 K/mm3 (1.8-7.8); Neutrophils % 50.3 % (37.0-80.0); Platelet Count 190 K/mm3 (142-424); Red Blood Count 3.53 M/mm3 (4.60-6.20); White Blood Count 7.3 K/mm3 (4.8-10.8)
--- NOTE | 2022-01-02 01:23 | ECG_ITS ---
APPROVED REPORT Exam: Resting ECG HR:62 bpm ECG Measurements Heart Rate 62 AXES QRSd 149 QRS -25 QT 435 T 119 QTc 440 Conclusion ATRIAL FIBRILLATION LEFT BUNDLE BRANCH BLOCK [120+ ms QRS DURATION, 80+ ms Q/S IN V1/V2, 85+ ms R IN I/aVL/V5/V6] ABNORMAL ECG UNCONFIRMED REPORT Electronically signed by : Dequan Kowalski MD 01/03/2022 20:11:49
[2022-01-02 01:33] LABS: Alanine Aminotransferase 28 U/L (12-78); Alkaline Phosphatase 85 U/L (38-126); Anion Gap 10.8 mEq/L (5-15); Aspartate Amino Transferase 33 U/L (17-59); Blood Urea Nitrogen 26 mg/dl (9-20); Calcium 8.4 mg/dl (8.4-10.2); Carbon Dioxide 27 mmol/L (22.0-30.0); Chloride 107 mmol/L (98-107); Creatinine Clearance Estimated 45 mL/min (50-200); Estimated Glomerular Filt Rate 42 ml/min (>60); GFR (African American) 51 ML/MIN (>60); Glucose 135 mg/dl (74-100); Magnesium 1.8 mg/dl (1.6-2.3); Potassium 3.8 mmoL/L (3.5-5.1); Sodium 141 mmol/L (136-145); Total Protein,Serum 7.3 g/dl (6.3-8.2)
[2022-01-02 01:35] LABS: Activated Partial Thrombo Time 24.8 seconds (22.8-30.6); Prothrombin Time 10.3 seconds (10.1-12.5)
[2022-01-02 01:35] LABS: Coronavirus 19, PCR Not Detected (NotDetected); Influenza A, PCR Not Detected (NotDetected); Influenza B, PCR Not Detected (NotDetected)
--- NOTE | 2022-01-02 01:37 | PC.NURSE ---
[facility] on phone with ER doctor
[2022-01-02 01:39] LABS: Bilirubin,Direct < 0.1 mg/dl (0.0-0.4); Bilirubin,Total < 0.1 mg/dl (0.2-1.3)
[2022-01-02 01:46] LABS: Troponin I < 0.01 ng/ml (0.00-0.034)
--- NOTE | 2022-01-02 01:47 | HMH.EDNEU ---
Discharge Plan Disposition Chief Complaint: Neuro Symptoms/Deficit Prescriptions Prescriptions: No Action evolocumab 140 mg/mL pen injector 140 mg SQ .EVERY 2 WEEKS Qty: 2 11RF famotidine 20 MG tablet 20 mg PO DAILY pantoprazole 40 MG tablet,delayed release (DR/EC) 40 mg PO DAILY aspirin 81 MG tablet,delayed release (DR/EC) 81 mg PO DAILY clopidogrel 75 mg tablet See Rx Instructions .ROUTE .COMPLEX Rx Instructions: Take 1 tablet by mouth once daily losartan 100 mg tablet See Rx Instructions .ROUTE .COMPLEX Rx Instructions: Take 1 tablet by mouth once daily Referrals Follow up/Referrals: Cruzito Preciado [Primary Care Provider] - See instructions Clinical Impressions Clinical Impression: Acute CVA (cerebrovascular accident), HTN (hypertension), CAD (coronary artery disease), Complete left bundle branch block (LBBB) Discharge ED Provider: Thien Castillo Neuro HPI General Chief Complaint: Neuro Symptoms/Deficit Stated Complaint: high blood pressure Time Seen by Provider: 01/02/22 01:15 Mode of Arrival: Ambulatory Source of Information: Patient and Medical Record Limitations: Language Barrier Description of Symptoms (Recalled from ER Triage Doc. by RN): PT WITH NEW ONSET STUTTER, SLURRED SPEECH, AND HYPERTENSION History of Present Illness HPI Narrative: pt with acute onset of altered speech about 0030 and has lt sided weakness with elevated bp but no chest pain - hx of prostate cancer and hx of cad with stents and lbbb- Onset (ago): minute(s) Timing confirmed by: other (friend ) Location: speech and left leg History of same: No Severity: moderate Context: sudden onset On Anticoagulants: No Associated symptoms: denies other symptoms Treatments Prior to Arrival: none Related Data Home Medications Medication Instructions Recorded Confirmed aspirin 81 mg tablet,delayed 81 mg PO DAILY heart health 05/19/17 01/02/22 release famotidine 20 mg tablet 20 mg PO DAILY GERD 04/12/21 01/02/22 pantoprazole 40 mg tablet,delayed 40 mg PO DAILY GERD 04/12/21 01/02/22 release clopidogrel 75 mg tablet See Rx Instructions .Route 01/02/22 01/02/22 .COMPLEX HEART PROBLEMS losartan 100 mg tablet See Rx Instructions .Route 01/02/22 01/02/22 .COMPLEX Hypertension Previous Rx's Medication Instructions Recorded evolocumab 140 mg/mL subcutaneous 140 mg SQ .EVERY 2 WEEKS 12/24/21 pen injector Cholesterol #2 mL Allergies Allergy/AdvReac Type Severity Reaction Status Date / Time clarithromycin [From Biaxin] Allergy Severe Hives Verified 07/21/21 14:03 atorvastatin AdvReac Intermediate myalgia Verified 07/21/21 14:03 rosuvastatin [From Crestor] AdvReac Intermediate myalgias Verified 07/21/21 14:03 Stroke Alert/NIH Score LOC Stroke Alert: Yes Stroke Alert date: 01/02/22 Stroke Alert time of activation: 01:07 Location of Alert: Emergency Department Level of Consciousness: Alert LOC Questions: Answers both correctly LOC Commands: Obeys both correctly Facial/Visual Best Gaze: Normal Visual: No visual loss Facial Palsy: Normal Motor Motor Response, Left Arm: No drift/Amputation/Fused Motor Response, Right Arm: No drift/Amputation/Fused Motor Response, Left Leg: No drift/Amputation/Fused Motor Response, Right Leg: No drift/Amputation/Fused Sensory/Language Limb Ataxia: Absent Sensory: Normal Best Language: No aphasia Dysarthria: Mild to moderate dysarthria NIH Score [facility] Medical History (Updated 01/02/22 @ 03:11 by Thien Castillo MD) Abnormal cardiovascular stress test Atypical angina HTN (hypertension) Social History Smoking Status: Never smoker second hand exposure: No alcohol intake: never substance use type: denies use current occupational status: retired household members: spouse housing: house current occupational exposures/hazards: No caffeine: No ROS Obtained: Yes All systems revie
--- NOTE | 2022-01-02 01:55 | PC.NURSE ---
PT'S FRIEND REMAINS AT BEDSIDE. PT REPORTS HE FEELS LIKE HE IS THINKING MORE CLEARLY.
--- NOTE | 2022-01-02 02:01 | ECG_ITS ---
APPROVED REPORT Exam: Resting ECG HR:65 bpm ECG Measurements Heart Rate 65 AXES CA 296 P 68 QRSd 150 QRS -26 QT 452 T 114 QTc 463 Conclusion SINUS RHYTHM WITH FIRST DEGREE AV BLOCK LEFT BUNDLE BRANCH BLOCK [120+ ms QRS DURATION, 80+ ms Q/S IN V1/V2, 85+ ms R IN I/aVL/V5/V6] ABNORMAL ECG UNCONFIRMED REPORT Electronically signed by : Dequan Kowalski MD 01/03/2022 20:11:43
--- NOTE | 2022-01-02 02:19 | PC.NURSE ---
NIH REASSESSED. NIH 1 FOR APHASIA. GRADUAL RETURN OF FUNCTION NOTED. FRIEND REMAINS AT BEDSIDE.
--- NOTE | 2022-01-02 02:33 | PC.NURSE ---
Call to [facility] re: transfer to neuro floor, awaiting a call back for room availability
--- NOTE | 2022-01-02 02:44 | PC.NURSE ---
Return call from [place], Dr. Sultana administration professional neuro for [facility], on phone with Dr. Castillo
--- NOTE | 2022-01-02 02:58 | PC.NURSE ---
Dr. Sultana accepted patient, paperwork and disc being prepared for transport by [facility]
--- NOTE | 2022-01-02 03:02 | PC.NURSE ---
Manuel notified of need for transport
--- NOTE | 2022-01-02 03:03 | PC.NURSE ---
Nurse coordinator called and states pt will go to 5th floor, tele unit. Will give specific bed# once pt arrives. Ph# to give report is [phone]
--- NOTE | 2022-01-02 03:34 | PC.NURSE ---
REPORT TO BAILEE HARDY AT [facility]- REPORT TO [facility] NURSE HEAD.
--- NOTE | 2022-01-02 03:40 | PC.NURSE ---
PT RELEASED TO EMS.
== END 2022-01-02 03:43 | disposition short-term general hospital (02) ==
PROVIDERS: Emergency Provider Emergency Medicine; PCP Family Medicine
DX: R47.81 Slurred speech (principal); R94.31 Abnormal electrocardiogram [ECG] [EKG]; R47.1 Dysarthria and anarthria; R47.01 Aphasia; Z20.822 Contact with and (suspected) exposure to COVID-19; I10 Essential (primary) hypertension; I25.119 Atherosclerotic heart disease of native coronary artery with unspecified angina pectoris; I44.7 Left bundle-branch block, unspecified; I44.0 Atrioventricular block, first degree; Z79.02 Long term (current) use of antithrombotics/antiplatelets; Z79.82 Long term (current) use of aspirin; Z79.899 Other long term (current) drug therapy; Z88.8 Allergy status to other drugs, medicaments and biological substances; Z95.5 Presence of coronary angioplasty implant and graft; Z85.46 Personal history of malignant neoplasm of prostate
CPT/HCPCS: 70450; 80048; 80076; 83735; 84484; 85025; 85610; 85730; 93005; 96360; 99285; C9803; J2405; U0003; U0005

== ENCOUNTER → 2023-03-31 13:39 | Outpatient (CLI) | payer OTHER, SELFPAY ==
--- NOTE | 2023-03-31 | CA_ITS ---
APPROVED REPORT EXAM: Comprehensive 2D, Doppler, and color-flow Echocardiogram Freight Dispatcher: ROSARIO Dodd, RVS Ht: 5 ft 9 in Wt: 181lbs BSA: 1.98 BP: 126/72 mmHg Indications: CAD, CM, CHF, Diastolic dysfunction, HTN, HLD 2D Dimensions IVSd 0.77 cm LVEF (Visual) 49.10 % PWd 1.04 cm LA Volume 43.90 mL LVDd 5.67 cm LA Volume Index 21.60 mL/m2 (M/F) 16-34 LVDs 4.24 cm Aortic Root 3.58 cm Left Atrium 3.19 cm LVOT 1.84 cm (M/F) 1.5-2.5 M-Mode Dimensions RVDd 1.90 cm (0.9-2.6) LA Diam 3.23 cm (1.9-4.0) LVDd 5.42 cm (3.5-5.7) Ao Diam 3.63 cm (2.0-3.7) LVDs 4.41 cm (3.5-5.7) IVSd 0.83 cm (0.6-1.1) PWd 0.93 cm (0.6-1.1) E-F [place] 191.57 cm/s EF (Teich) 38.10% EPSs 2.15 cm FS 18.60% EDV (Teich) 142.50 mL TAPSE 2.19 (<1.7) ESV (Teich) 88.20 mL LV Diastology E Decel Time 207.00 (160-240 msec) E/A Ratio 0.82 MED E' 3.80 (< 7 cm/sec) MED A' 10.50 cm/s E'/MED E' Ratio 18.63 (>14) LAT E' 6.80 (<10 cm/sec) LAT A' 11.00 cm/s E/LAT E' Ratio 10.41 (>14) Aortic Valve LVOT Max 86.00 (70-110 cm/s) LVOT VTI 15.67 cm AoV Peak Tevin. 115.00 (50-130 cm/s) AO Peak GR. 5.30 mmHg AO Mean GR. 2.60 (<5 mmHg) AO VTI 21.12 (18-25 cm) CHRIS (VTI) 1.97 (2.5-4.5 cm2) Mitral Valve MV A Velocity 86.00 (40-130 cm/s) E/A Ratio 0.82 MV Decel. Time 207.00 (160-240 ms) Tricuspid Valve TR P. Velocity 144.00 cm/s Left Ventricle The left ventricle is normal size. Left ventricular systolic function is mildly decreased. There is increased LV wall thickness. There is mild global hypokinesis present. There is moderate hypokinesis of the inferolateral LV wall. Grade 1 diastolic dysfunction is present. LVEF is 45%. Right Ventricle The right ventricle is normal size. The right ventricular systolic function is normal. Atria The left atrium size is normal. The right atrium size is normal. There is no Doppler evidence of interatrial shunt. Aortic Valve The aortic valve opens well. There is no aortic valvular stenosis. Trace aortic regurgitation. Mitral Valve The mitral valve is normal in structure. No evidence of mitral valve stenosis. Trace mitral valve regurgitation noted. Tricuspid Valve The tricuspid valve leaflets are thin and pliable. Trace tricuspid regurgitation. There is insufficient TR jet to estimate RVSP. Pulmonic Valve The pulmonary valve is normal in structure. Trace pulmonic regurgitation. Great Vessels The aortic root is normal in size. The ascending aorta is normal in size. IVC is normal in size and collapses >50% with inspiration. Pericardium Trivial pericardial effusion. There are no echo indications of tamponade. Other Information Study Quality: Fair Conclusion Mildly reduced LV systolic function (LVEF 45%). Moderate hypokinesis of the inferolateral LV wall. No significant valvular stenosis or regurgitation. Electronically signed by : Laura Lino MD 04/07/2023 19:15:55
== END ==
PROVIDERS: PCP Nurse Practitioner Family; Visit Provider Chiropractor
DX: I25.10 Atherosclerotic heart disease of native coronary artery without angina pectoris (principal); R94.31 Abnormal electrocardiogram [ECG] [EKG]
CPT/HCPCS: 93306

== ENCOUNTER → 2023-04-28 12:50 | Outpatient (CLI) | payer OTHER, SELFPAY ==
--- NOTE | 2023-04-28 13:03 | XR_ITS ---
FINAL REPORT CLINICAL HISTORY: Chronic left knee pain FINDINGS: LEFT KNEE Three views demonstrate no acute fracture or dislocation. There is mild narrowing of the medial compartment joint spaces. No acute soft tissue abnormality is seen. IMPRESSION: Degenerative change with no acute bony abnormality. Reviewed, Interpreted and Dictated by Amandeep Rahman MD Transcribed by June Person Authenticated and [facility]
--- NOTE | 2023-04-28 13:03 | XR_ITS ---
FINAL REPORT CLINICAL HISTORY: Chronic right knee pain FINDINGS: RIGHT KNEE Three views demonstrate no acute fracture or dislocation. There is mild narrowing of the medial compartment joint spaces. No acute soft tissue abnormality is seen. IMPRESSION: Degenerative change with no acute bony abnormality. Reviewed, Interpreted and Dictated by Amandeep Rahman MD Transcribed by June Person Authenticated and [facility]
== END ==
LOC: RAD 12:54
PROVIDERS: PCP Nurse Practitioner Family; Visit Provider Chiropractor
DX: M13.80 Other specified arthritis, unspecified site (principal)
CPT/HCPCS: 73562